=== PATIENT | female | born 1945 | race Caucasian/White ===

== ENCOUNTER 2017-05-04 05:41 | Inpatient (IN) | payer MEDICARE, OTHER ==
[2017-05-04] VITALS (9 sets, daily range): BP systolic 86–140; BP diastolic 42–57; PULSE 60–64; RESP 14–24; O2SAT 93–99
[~2017-05-04] VITALS: Ht 165.1 cm; Wt 96.0 kg
--- NOTE | 2017-05-04 05:35 | ED.REPORT ---
HPI-Chest Pain Under 40 Date of Service May 04, 2017 ED Provider: Layne Mcmahan MD The pt is a 72 y/o female w/ a hx of hyperlipidemia, HTN, diabetes, CAD, and a cerebral infarction presenting to the ED via EMS due to chest pain onset last evening. The pain is rated as a 10/10 and she is also experiencing L jaw pain currently and nausea, vomiting, diarrhea, and black stools for the last few days. Denies peripheral edema, SOB, or abdominal pain. Per EMS, the pts last BP was 101/60 and 324 mg of Aspirin was given en route. The pt was brought to the [facility] and was then sent here by the doctor after they saw the EKG. The pt also experiences generalized pain which is chronic and normal for her. She reports living with her friend at home. She had a cath in 2004 which showed mild disease w/o obstruction and did not have any intervention otherwise. Nursing Notes Stated Complaint: CHEST PAIN Chief Complaint: Chest pain Nursing Notes Reviewed: Yes Allergies: Coded Allergies: No Known Allergies (Unverified , 05/04/17) General Time Seen by MD: 06:10 Chief Complaint Chest pain Hx Obtained From: Patient, EMS Arrived By: Ambulance Sudden in Onset?: Yes Onset Occurred: Yesterday Symptom Duration: Since onset Recent Healthcare: No recent hospitalization, Recent doctor visit Past Medical History Past Medical History Hyperlipidemia Cerebral infarction HTN Diabetes CAD Past Surgical History Bilat hip replacement Cath in 2004 which showed mild disease w/o obstruction and did not have any intervention otherwise. Social History Pt reports living at home w/ a friend Other Social History: Good social support Ambulatory Status Independent Review of Systems L jaw pain; Chronic generalized pain; Respiratory: Denies: Shortness of breath Cardiovascular: Reports: Chest pain, Denies: Edema GI: Reports: Diarrhea, Melena, Nausea, Vomiting, Denies: Abdominal pain Complete sys rev & neg: except as marked. Physical Exam Initial Vital Signs Vital Signs (First) Date Time Temp Pulse Resp B/P Pulse Ox O2 Delivery O2 Flow Rate FiO2 05/04/17 05:47 36.1 64 14 86/42 98 Room Air 05/04/17 07:09 2 Initial VS: Reviewed General/Constitutional: Awake, Alert Alertness: Positive: Confused (Moderately ) Appearance / Presentation: Positive: Pale Respiratory / Chest: No respiratory distress Crackles over R base Cardiovascular: Heart rate NL, Regular rhythm, Heart sounds NL, No murmurs Good inguinal pulses bilaterally Well perfused peripherally Palpable dorsalis pedis and posterior tibialis pulses Neck: Atraumatic, Supple, Full range of motion Abdomen: Atraumatic, Soft, Non-tender Skin: No rash, Intact Neurologic: No motor deficits, No sensory deficits Mental Status: Positive: Confused Neuro is nonfocal Pt is moving all extremities Head / Eyes: Atraumatic, Normocephalic ENT: Airway patent Mouth: Positive: Mucous membranes dry Rectal for Blood: Positive: Maroon stool Guaiac positive Interpretation & Diagnostics H+H on 05/27/14 Hemoglobin - 11.7 Hematocrit - 35.7 Lab Results Interpretation Result Diagram: 05/04/17 0550 05/04/17 0550 Test 05/04/17 05:50 05/04/17 06:05 White Blood Count 14.6th/mm3 (3.8-10.1) Red Blood Count 1.97mil/mm3 (3.90-5.20) Hemoglobin 6.0g/dL (12.0-15.6) Hematocrit 18.3% (35.0-46.0) Mean Corpuscular Volume 92.9fL (81-100) Mean Corpuscular Hemoglobin 30.5pg (27.0-35.0) Mean Corpuscular Hemoglobin Concent 32.8% (32.0-37.0) Red Cell Distribution Width 15.5% (12.3-15.4) Platelet Count 436bil/L (150-400) Neutrophils (%) (Auto) 69.9% (40-74) Lymphocytes (%) (Auto) 19.4% (14-46) Monocytes (%) (Auto) 7.6% (4-12) Eosinophils (%) (Auto) 1.4% (0-5) Basophils (%) (Auto) 0.1% (0-3) Sodium Level 131mEq/L (134-144) Potassium Level 4.7mEq/L (3.5-5.2) Chloride Level 98mEq/L (97-108) Carbon Dioxide Level 16mmol/L (18-29) Blood Urea Nitrogen 63mg/dL (8-27) Creatinine 2.24mg/dL (0.57-1.00) Estimat Glomerular Filtration Rate 31mL/min (>59) Glucose Level 262mg/dL (60-99) Calcium Level 7.9mg/dL (8.5-10.1) Magnesium Level 1.9mg/dL (1.6-2.6) Total Bilirubin 0.2mg/dL (0.0-1.2) Aspartate Amino Transf (AST/SGOT) 29U/L (0-50) Alanine Aminotransferase (ALT/SGPT) 19U/L (0-32) Alkaline Phosphatase 81U/L (25-165) Troponin T 0.010ug/L (0.0-0.011) Total Protein 5.7g/dL (6.4-8.4) Albumin 3.0g/dL (3.4-5.0) Hold Garcia Top Tube Received (Received) Prothrombin Time 11.0sec (8.1-12.5) Prothromb Time International Ratio 1.03ratio ECG Interpretation ECG Interpretation: NSR ST elevation in leads II, III, and aVF Meets sgarbossa criteria LBBB Time: 06:15 Interpreted by: ED physician X-Ray Chest Interpretation Chest Xray Interpretation: IMPRESSION: No acute cardiopulmonary disease process. Dictated by: Arlyn Malone MD, PhD on 05/04/2017 at 8:43 Approved by: Arlyn Malone MD, PhD on 05/04/2017 at 8:43 View: Portable, 1 view Interpretation / Wet Read by: Interpret - Radiologist Re-Eval/Medical Decision Re-Evaluation/Progress #1: Time of Eval: 06:20 Re-Evaluation/Progress Note: Pt rechecked. Dr. Shaver, sheet tester, was with the pt. STEMI was activated en route but deactivated due to other medical issues. Re-Evaluation/Progress #2: Time of Eval: 06:45 Re-Evaluation/Progress Note: Pt rechecked who reports their pain continuing. Discussed plan to administer nitro. Re-Evaluation/Progress #3: Time of Eval: 08:30 Re-Evaluation/Progress Note: Pt rechecked. Informed pt of need for admission. Pt understands and agrees with plan for admission. All questions addressed. Consultation #1: Referral / Consult Name: Endy Shaver MD Consulted With: Cardiology Call Returned at: 05:33 Afterschool: Will see patient Consultation #2: Referral / Consult Name: Connor Amos MD Consulted With: Hospitalist Call Returned at: 07:55 Afterschool: Will see patient, Agrees with eval, Agrees with plan, Accepts admit Counseled Regarding: Diagnosis, Lab results, Need for admission Discharge & Departure Primary Impression: Acute blood loss anemia Additional Impressions: GI bleed GI bleed type/associated pathology: unspecified gastrointestinal hemorrhage type Qualified Code: K92.2 - Gastrointestinal hemorrhage, unspecified Chest pain Chest pain type: unspecified Qualified Code: R07.9 - Chest pain, unspecified Altered mental state Altered mental status type: unspecified Qualified Code: R41.82 - Altered mental status, unspecified Disposition: ADMITTED TO HOSPITAL Discharge Condition All VS Reviewed: Yes Condition: Stable Referrals: Sandra Canas PA-C (PCP) Scribe Attestation Portions of this note were transcribed by Sherwin Tripp. I, Dr. Mcmahan personally performed the history, physical exam and medical decision-making; I reviewed and confirmed the accuracy of the information in the transcribed note. copies to: Sandra Canas PA-C, Howard L MD May 04, 2017 05:34 Sherwin Tripp May 04, 2017 06:29
[2017-05-04 06:04] LABS: BASOPHILS % (AUTO) 0.1 % (0-3); EOSINOPHILS % (AUTO) 1.4 % (0-5); MONOCYTES % (AUTO) 7.6 % (4-12); Mean Corpuscular Hemoglobin 30.5 pg (27.0-35.0); Mean Corpuscular Volume 92.9 fL (81-100); NEUTROPHILS % (AUTO) 69.9 % (40-74); Platelet Count 436 bil/L (150-400)
[2017-05-04] MEDS ORDERED: 0.9% Sodium Chloride 500 ML ONE (06:06)
[2017-05-04] MEDS ORDERED: Ketamine 10 mg/mL 20 mL Inj ONE (06:12)
[2017-05-04] MEDS ORDERED: Propofol 10,000 mCg/mL 20 mL Inj ONE (06:12)
[2017-05-04 06:19] LABS: INR 1.03 ratio
[2017-05-04] MEDS ORDERED: Phenylephrine/NS-PF 100 mCg/mL 5 mL Syringe IVPUSH ONE (06:20)
[2017-05-04] MEDS ORDERED: Heparin 1,000 Units/500 mL NS Premix IV ONE (06:20)
[2017-05-04] MEDS ORDERED: 0.9% Sodium Chloride 1,000 ML ONE (06:20)
[2017-05-04] MEDS ORDERED: Nitroglycerin 50,000 mcg/250 mL D5W Premix IV ONE (06:20)
[2017-05-04] MEDS ORDERED: Atropine 1 mg/10 mL (Code) Syringe ONE (06:20)
[2017-05-04] MEDS ORDERED: EPINEPHrine 0.1 mg/mL 10 mL Syringe ONE (06:20)
[2017-05-04] MEDS ORDERED: Heparin 1,000 Unit/mL 10 mL Inj ONE (06:20)
[2017-05-04 06:25] LABS: TROPONIN T 0.01 ug/L (0.0-0.011)
[2017-05-04] MEDS ORDERED: Pantoprazole 4 mg/mL 10 mL Inj IVPUSH ONE (06:25)
[2017-05-04] MEDS ORDERED: Pantoprazole Inj 80 MG, Pharmacy To Mix 1 EA in 0.9% Sodium Chloride 80 ML IV ONE ×2 (06:25)
[2017-05-04 06:36] LABS: Magnesium 1.9 mg/dL (1.6-2.6)
[2017-05-04] MEDS ORDERED: LidocaineVisc 2%:Antacid 1:1 10 mL Syringe PO STA (07:17)
--- NOTE | 2017-05-04 08:22 | CONS ---
[address] [address] CONSULTATION REPORT PATIENT: YELENA MARTINS : [birth year] MR#: [id number] ADMIT: 05/04/2017 JOB ID: [id number] CARDIOLOGY CONSULTATION NOTE--INITIAL CRITICAL CARE EVALUATION (EMERGENCY DEPARTMENT): DATE OF EVALUATION: Thursday, May 04, 2017 at 5:45AM. CONSULTING PHYSICIAN: Cardiology--Endy Shaver MD PROBLEMS: 1. Acute Coronary Syndrome (ACS): a. Chest Pain--Severe retrosternal chest pain radiating to the back for already for several hours. b. Abnormal ECG--left bundle branch block with inferior ST-elevation; and prior known left bundle branch block without ST elevation. 2. Anemia and hypotension: a. Hemoglobin 6. b. Initial ysytolic blood pressure 78. c. Recent orthostatic hypotension. d. Melena for several days and now guaiac-positive stool. 3. History of atrial fibrillation. a. History of Coumadin therapy. b. Elevated CHADS score (age; gender; hypertension; diabetes; possible history of stroke). CHIEF COMPLAINT: Called for "Online Marketing Manager Activation" for Chest pain and left bundle branch block. HISTORY OF PRESENT ILLNESS: I came emergently to see this 72-year-old woman who arrived to the Emergency Department by ambulance transport from home. She is somewhat confused and not fully oriented, and unable to give a complete accurate history. She has not had recent chest pain until the onset of chest discomfort. Yesterday evening she apparently had discomfort on and off all the evening and had to "walk around all night." She was said to have a fall leading to calling for EMS help; but I am unable to get further details of that; but no obvious history of trauma. She reports severe left parasternal chest discomfort that is "sharp" and radiates to the back. She is not short of breath. There is no nausea, vomiting or diaphoresis. She also describes bilateral lower abdominal discomfort that is severe, but not cramping. There has been no diarrhea. In the field, she received aspirin. HOSPITAL COURSE: On arriving to the emergency department, ECG showed left bundle block with inferior ST elevation; and catheterization lab was activated. However it became clear early on that she had a hemoglobin of 6, hostory of recent melena and guaiac-positive stool, and the decision was made not to proceed emergently to catheterization laboratory. CARDIAC HISTORY: Prior records are largely not available currently. She was hospitalized in 2004 for chest pain and had cardiac catheterization that showed only coronary plaquing. She had poorly controlled hypertension then. A myocardial perfusion scan showed no ischemia in 2007. She has apparently not had active cardiac issues since then. She tells me she does not generally have shortness of breath or other signs of congestive heart failure, including nocturnal dyspnea or edema. History of atrial fibrillation is not well documented. She has no other current arrhythmic symptoms including tachy palpitation, presyncope or syncope. She does however have orthostatic hypotension for the past several days including "falls." Regarding bleeding, she notes recent change in her bowel movements that are "really changed: black, tarry and foul smelling. No red blood. No other bleeding symptoms. Regarding dual antiplatelet therapy, she has no anticipated upcoming surgery. Regarding other possible underlying vascular disease, the record indicates a possible history of a stroke, but no details. She was recently seen for chronic severe migrainous headache. She has no current symptoms of TIA. No claudication. ALLERGIES: The record indicates no known allergies. I elicit no history of allergy to medical contrast or to seafood, fish, iodine, shellfish or seafood. MEDICATIONS: Accurate list of medications not currently available. A recent outpatient summary indicates: 1. Albuterol inhaler. 2. Insulin pen. 3. Bupropion 150 mg three q.a.m. 4. Citalopram 20 mg daily. 5. Donepezil 5 mg daily. 6. Keppra 750 mg b.i.d. 7. Lantus. 8. Levothyroxine 88 mcg daily. 9. Lovastatin 20 mg daily. 10. Metoprolol ER 50 mg daily. 11. Qvar topiramate 25. 12. Coumadin 5 mg daily. PAST MEDICAL HISTORY: CAD risk factors: 1. Chronic hypertension. 2. History of diabetes. 3. History of hyperlipidemia. 4. She denies family history of premature coronary disease. 5. Nonsmoker. REVIEW OF SYSTEMS: I questioned her in the emergent setting about a 13 point review of systems, which was unremarkable, noncontributory, and negative, except as noted above and is limited by her inability to answer, includin. She denies thyroid disease. 2. She denies lung disease including asthma or wheezing. 3. She denies GI disease including indigestion, hepatitis, jaundice, ulcers. PERSONAL AND SOCIAL HISTORY: Alcohol--unable to answer. Family--She lives with a friend and has two grown children locally, but no other family currently present. FAMILY HISTORY: Not further contributory. PHYSICAL EXAMINATION: General appearance: Elderly, well-developed alert woman who appears pale, uncomfortable and she is not oriented to her age, or time. Vital Signs: Blood pressure initially 78 systolic, now 86/42 with a heart rate regular 64 in sinus rhythm on telemetry. Respiratory rate 14 and unlabored with SpO2 of 98% on room air. Afebrile 36.1. Weight 220 pounds. Weight reported 225 pounds. Neurologic and mental status: No overt focal neurologic defect noted. She is alert, not fully oriented, but otherwise appropriate, and able to answer questions. HEENT: PERRL. Conjunctivae pale. Sclerae not icteric. Mouth and mucous membranes intact. Neck: Carotid upstroke brisk and full bilaterally without bruit. Jugular venous pressure unremarkable examined supine. No palpable thyromegaly. No palpable cervical lymphadenopathy. Lungs: Clear to auscultation bilaterally. Cardiac: No CWT. Heart Exam otherwise notable for distant heart sounds; regular rhythm; and there is no loud murmur. Abdomen: Obese and in there is moderately severe tenderness in the bilateral lower abdomen without rebound. Otherwise, no mass, hepatosplenomegaly or bruit of abdominal aortic aneurysm. Extremities: No edema. Pedal pulses difficult to feel bilaterally, but the bilateral femoral arterial pulses intact without bruit. DIAGNOSTIC STUDIES: ELECTROCARDIOGRAM: The pre-hospital ECG and the admitting ECG shows sinus rhythm at 64 BPM with left bundle branch block; however, there is mild ST straightening and ST-elevation inferiorly that fransisco suggestive of MO by Sgarbossa criteria. This is changed from a prior ECG without ST-elevation. CHEST X-RAY: The x-ray film shows cardiomegaly and pulmonary venous hypertension consistent with pulmonary edema. The mediastinum does not appear wide. LABORATORY: CBC includes WBC 14,600 with hemoglobin 6.0, hematocrit 18.3, normal indices, and platelet count 436,000. INR 1.03. Chemistries include potassium 4.7, BUN 63, creatinine 2.24, estimated GFR 31 with glucose 262, magnesium 1.9 and unremarkable LFT. Initial troponin not elevated, less than 0.010. ASSESSMENT: I discussed the findings, impressions and management considerations with the patient (no family present), with the ED staff ( and Dr. Mcmahan) includin. Acute coronary syndrome and severe anemia: She presents critically ill, with a complex clinical scenario. Initially she presented with chest pain and the ECG suggests ST-elevation myocardial infarction despite underlying left bundle branch block. She is also hypotensive which may be multifactorial. It quickly became clear that she had life threatening anemia in the setting of melena and this is likely acute anemia without hypochromic microcytic indices. Initially the catheterization laboratory was activated with consideration of emergent coronary angiogram. Cath laboratory activation was deferred in as much as anemia and apparent gastrointestinal bleeding contraindicates anticoagulation that would be necessary for acute and chronic management of coronary disease. Additionally, it is likely that her apparent infarction and acute coronary syndrome may be related to, or exacerbated by, "type 2 myocardial infarction" from supply demand mismatch from her severe anemia rather than from plaque rupture; and optimal treatment may be first directed at the hemmorhage. RECOMMENDATIONS: 1. Admit to Hospitalist to CCU for critical care support. 2. Transfusion. 3. Please reconsult for ongoing Cardiology follow-up. 4. OMT--consider guideline directed optimal medical therapy for her underlying CAD risk factors; and for her apparent underlying CAD; but anticoagulation appears contraindicated at present. 5. Your plan to evaluate abdominal pain, melena, anemia and apparent GI bleeding; including emergent GI consultation and consideration of early Endoscopy. 6. Please obtain prior records when available and reconsult, at which point we will be glad to review. 7. Severe renal insufficiency identified as well. 8. Echocardiogram now. MTDD
[2017-05-04] MEDS ORDERED: Alum-Mag Hydrox-Simeth 30 mL Suspension PO PRN ×2 (08:35→12:20)
[2017-05-04] MEDS ORDERED: Ondansetron 2 mg/mL 2 mL Inj IVPUSH PRN ×2 (08:35→12:20)
--- NOTE | 2017-05-04 08:45 | DRSVH ---
PROCEDURE: X-RAY CHEST ONE VIEW, PORTABLE ([id number]) INDICATIONS: chest pain TECHNIQUE: One view of the chest was acquired. COMPARISON: [facility], , CHEST 1 VIEW, 07/25/2016, 12:40. FINDINGS: Surgical changes and devices: None. Lungs and pleura: No pleural effusions or pneumothorax. Lungs are clear. Mediastinum: Mediastinal contours appear normal. Heart size is normal. Bones and chest wall: No suspicious bony lesions. Overlying soft tissues appear unremarkable. IMPRESSION: No acute cardiopulmonary disease process. Dictated by: Arlyn Malone MD, PhD on 05/04/2017 at 8:43 Approved by: Arlyn Malone MD, PhD on 05/04/2017 at 8:43
[2017-05-04] MEDS: 0.9% Sodium Chloride 1,000 ML IV SCH ×2 (10:04→12:34)
--- NOTE | 2017-05-04 12:14 | PCM.HPMED ---
Subjective Date of Service May 04, 2017 Primary Provider: Admitting Physician: Endy Shaver MD Primary Care Physician: Sandra Canas PA-C Attending Physician: Endy Shaver MD Chief Complaint: Chest pain History of Present Illness: 72 -year-old female with history of dementia, hyperlipidemia, HTN, diabetes, CAD , and CVA presents to the ED via EMS due to chest pain onset last evening. Patient described the pain as a 10/10 which radiates to the L jaw. Associated symptoms include nausea, vomiting, diarrhea, and black stools for the last few months and generalized pain which appears to be baseline chronic. Denies peripheral edema, SOB, or abdominal pain. Patient is a poor historian and not currently oriented to place or time, it is hard to tell whether this is a new development or if this is her baseline dementia. A family member/friend has been notified and is in route to see the patient. Med rec pending until additional records can be obtained. She had a cath in 2004 which showed mild disease without obstruction and did not have any intervention otherwise. Blood pressure in route to the hospital 101/60 with 324 mg of Aspirin was given en route. The pt was initially brought to the parking [facility] and was then sent to [facility] by the doctor after noting ST elevations on EKG. On arrival to [facility] EKG was obtained which showed normal sinus rhythm with ST elevations in leads II, III, and aVF but also showed a left bundle-branch block. Labs were taken and the patient was found to have a hemoglobin of 6.0. This patient was subsequently transfused with 4 units of blood. Blood pressures were decreased on arrival at 86/42, post transfusion of platelets the patient's blood pressure continued to increase and is currently 118/53. Pulse borderline low, respirations normal, patient initially requiring 2 L but has since been saturating well on room air. Other significant lab findings are as follows WBC 14.6, platelets 436, sodium 131, chloride 98, bicarbonate 16, BUN 63, creatinine 2.24, glucose 262. Dr. Shaver was initially consulted in this case and after looking at the EKG concluded that the patient meets sgarbossa criteria for a likely inferior infarct, however in light of her obvious bleeding in conjunction with her increased creatinine it would be unwise to initiate any interventions at this time especially catheterization and/or heparinization. After the patient is considerably more stable and EKG can be reobtained and diagnosis of coronary ischemia is more likely to be clear-cut at that point. Dr. Toth also saw the patient and based on a rectal exam believes that her bleeding is likely upper GI as opposed to lower, and will take the patient for an upper scope today, and continue with lower scope if no significant findings are appreciated. Review of Systems: ROS negative except as listed in history of present illness Allergies Coded Allergies: No Known Allergies (Unverified , 05/04/17) Home Medications Unknown, records from PCP pending PMH Hyperlipidemia Cerebral infarction HTN Diabetes CAD Surgical History Bilat hip replacement Cath in 2004 which showed mild disease w/o obstruction and did not have any intervention otherwise. Social History Hx Alcohol Use: No Hx Substance Use: No Hx Tobacco Use: No Exam Vital Signs Vital Sign - Last Date Time Temp Pulse Resp B/P Pulse Ox O2 Delivery O2 Flow Rate FiO2 05/04/17 09:20 36.8 64 18 118/53 95 Room Air 05/04/17 08:53 2 Exam General: No acute distress, well-developed, well-nourished Head: Normocephalic, atraumatic. External ears without defect. Eyes: Pupils equal, round, and reactive to light and accommodation. Anicteric sclerae, moist conjunctivae. Neck: Normal range of motion, no lymphadenopathy noted Cardiovascular: Regular rate and rhythm with no murmurs, rubs, or gallops appreciated Pulmonary: Clear to auscultation bilaterally with no crackles, wheezes, or rhonchi. Normal respiratory effort with no use of accessory muscles. Abdomen: Bowel tones present. Soft, nontender, nondistended. Extremities: No clubbing, cyanosis, edema Skin: Normal temperature, turgor, and texture; no rash, ulcers, or subcutaneous nodules appreciated. Neurological: Cranial nerves grossly intact. Reflexes, coordination, and sensory function within normal limits. Normal muscle strength, tone, and bulk. Psychiatric: Normal mood and affect. Obvious dementia, Oriented to person but not place or time Rectal: No lesions or jane blood in the anus, well-formed stool in the vault, stool appears dark Lab and Diagnostics Result Diagram: 05/04/17 0550 05/04/17 0550 X-Rays, CTs and MRIs X-RAY CHEST ONE VIEW, PORTABLE IMPRESSION: No acute cardiopulmonary disease process. Dictated by: Arlyn Malone MD, PhD on 05/04/2017 at 8:43 Approved by: Arlyn Malone MD, PhD on 05/04/2017 at 8:43 Cardiac Echo Impressions Echocardiogram Interpretation Summary Left ventricular systolic function is mildly reduced with the ejection fraction visually estimated to be 45-50% with borderline global hypokinesis that is worse in the inferior and posterior segments which are severely hypokinentc, which is new compared to the previous study. Compared to the prior exam, left ventricular function has slightly decreased. There is mild concentric left ventricular hypertrophy with diastolic parameters suggesting a pseudonormalization pattern, consistent with elevated filling pressures, but likely unchanged compared to the previous study. The right ventricle is normal in size and function, and appears unchanged compared to the previous study. The right ventricular systolic pressure is estimated at least 54 mmHg assuming a right atrial pressure of 8 mm Hg, and is likely slightly higher compared to the previous study. The left atrium is severely dilated and has mildly increased in size since the prior echo exam. Right atrial size is normal and has significantly decreased in size since the prior echo exam. There is mild mitral regurgitation and mild to moderate tricuspid regurgitation that are unchanged compared to the previous study. There is no other significant valvular heart disease. The ascending aorta is at the upper limits of normal in size. The patient was in normal sinus rhythm with a probable bundle branch block rhythm with heart rates between 60-65 bpm during the study which is considerably faster compared to the previous study. Reading Physician:12:42 PM Assessment & Plan 72 -year-old female with history of dementia, hyperlipidemia, HTN, diabetes, CAD , and CVA presents to the ED via EMS due to chest pain onset last evening. Of note: Patient's PCP is Dr. Andres Corona in [place], records have been petitioned but not obtained at this time. Up-to-date med list has not been obtained, patient and partner are both poor historians in this matter. The partner only recalls the amlodipine and donepezil were recently discontinued. Normocytic anemia secondary to GI bleed, present on arrival, active Rectal exam showing stool in the vault, nonbloody. Less likely lower GI bleed Upper scope completed by Dr. Toth on 05/04 shows multiple duodenal ulcers, with no active bleeding - Patient transfused 4 units PRBCs - Post transfusion H&H 11.0 - Trend H&H overnight, repeat transfusion if less than 8.0 - Continue to monitor closely Acute hypotension, present on arrival, stable Blood pressure on arrival 86/42 Patient was given 2 L of fluid in the ED as well as 4 units PRBCs -Vitals have been stable since that time - Continue to monitor Q4 Acute hypoxic respiratory distress, present on arrival, stable - Patient is not on oxygen at home - Currently Requiring 2 L nasal cannula - Acute wheezing noted, however DuoNeb scheduled only for increasing oxygen needs due to recent CO Normocytic anemia secondary to GI bleed, present on arrival, active Rectal exam showing stool in the vault, nonbloody. Less likely lower GI bleed Upper scope completed by Dr. Toth on 05/04 shows multiple duodenal ulcers, with no active bleeding - Patient transfused 4 units PRBCs - Post transfusion H&H 11.0 - Trend H&H overnight, repeat transfusion if less than 8.0 ST elevation CO, present on arrival, active Likely due to hypoperfusion secondary to anemia, possibly in combination with coronary defect. EKG meets sgarbossa criteria for inferior infarct - Echo ejection fraction 45-50% other results as above - Cardiology consulted, catheter not suggested due to acute bleed in conjunction with ANGY Acute kidney injury, present on arrival, active Likely due to hypoperfusion secondary to anemia - Patient received 2 L normal saline in ED - No known history of kidney disease Acute leukocytosis, present on arrival, active Likely due to stress reaction secondary to ischemic injury Dementia, present on arrival, active Partner reports that this is gradually worsening Patient sees Dr. Saucedo from neurology - The only labs in [facility] are from 2013 History of Type II diabetes - Glucose on arrival to 280s - Started on medium dose correction - Transition to long-acting as appropriate History of Hypertension - Hold all antihypertensive medications at this time Coronary artery disease Per patient catheter in 2004 with no interventions at that time - Patient presents a poor historian, records needed to further elucidate past interventions. Disposition: Patient admitted under inpatient status with expected length of stay > 2 midnights for severity of present symptoms, complexities of treatment plan and risk for adverse event GI Prophylaxis: H2 ingrid (famotidine every 12) VTE Prophylaxis Indicated: CCU Admission, Contraindicated VTE Prophylaxis: Other (contraindicated due to GI bleed) Resuscitation Status: CPR: Attempt Resuscitation Attending Statement The patient was seen and examined together with Dr. Amor on 05/04/2017 and I agree with the history, exam and plan as outlined in the note above. . copies to: Sandra Canas PA-C, Adam J DO May 04, 2017 12:14 Connor Amos MD May 05, 2017 07:58
[2017-05-04] MEDS ORDERED: Polyethylene Glycol (PEG) 17 Gm Powder PO PRN (12:20)
--- NOTE | 2017-05-04 12:43 | DRSVH ---
[facility] [address] [place] [address] Echocardiogram Report Name: YELENA MARTINS Date: 05/04/2017 Height: 65 in Hospital Exam Location: [facility] Weight: 202 lb Gender: Female BSA: 2.0 m2 : 1945 Age: 72 yrs BP: 118/ 53 mmHg Reason For Study: POSSIBLE STEMI Ordering Physician: HOSPITALIST [facility] Performed By: Freida Iqbal Referring Physician: Cookie Salguero Interpretation Summary Left ventricular systolic function is mildly reduced with the ejection fraction visually estimated to be 45-50% with borderline global hypokinesis that is worse in the inferior and posterior segments which are severely hypokinentc, which is new compared to the previous study. Compared to the prior exam, left ventricular function has slightly decreased. There is mild concentric left ventricular hypertrophy with diastolic parameters suggesting a pseudonormalization pattern, consistent with elevated filling pressures, but likely unchanged compared to the previous study. The right ventricle is normal in size and function, and appears unchanged compared to the previous study. The right ventricular systolic pressure is estimated at least 54 mmHg assuming a right atrial pressure of 8 mm Hg, and is likely slightly higher compared to the previous study. The left atrium is severely dilated and has mildly increased in size since the prior echo exam. Right atrial size is normal and has significantly decreased in size since the prior echo exam. There is mild mitral regurgitation and mild to moderate tricuspid regurgitation that are unchanged compared to the previous study. There is no other significant valvular heart disease. The ascending aorta is at the upper limits of normal in size. The patient was in normal sinus rhythm with a probable bundle branch block rhythm with heart rates between 60-65 bpm during the study which is considerably faster compared to the previous study. Procedure: A two-dimensional transthoracic echocardiogram with color flow and Doppler was performed. The study quality was technically adequate. Comparison is made with the echocardiogram of 12/16/15. The patient was in normal sinus rhythm during the exam. The patient had a bundle branch block rhythm during the exam. The heart rate ranged between 60-65 bpm during the study. This is considerably faster compared to the previous study. Left Ventricle: The left ventricle is normal in size. There is mild concentric left ventricular hypertrophy. Left ventricular systolic function is mildly reduced. The ejection fraction is estimated to be 45-50%. Compared to the prior exam, left ventricular function is slightly decreased. There is borderline global hypokinesis of the left ventricle. This is worse in the inferior and posterior segments whichar are severely hypokinentc, which is new compared to the previous study. Assessment of diastolic parameters suggests a pseudonormalization pattern, consistent with elevated filling pressures. This is unchanged compared to the previous study. Right Ventricle: The right ventricle is normal in size and function. This is unchanged compared to the previous study. Atria: The left atrium is severely dilated. The left atrium has mildly increased in size since the prior echo exam. Right atrial size is normal. The right atrium has significantly decreased in size since the prior echo exam. There is no Doppler evidence for an interatrial shunt. Mitral Valve: There is mild mitral annular calcification. The mitral valve leaflets appear mildly thickened, but open well. There is mild mitral regurgitation. This is unchanged compared to the previous study. Aortic Valve: The aortic valve is trileaflet. The aortic valve is slightly calcified. The aortic valve opens well. No aortic regurgitation is present. Tricuspid Valve: The tricuspid valve is normal. There is mild to moderate tricuspid regurgitation. This is unchanged compared to the previous study. The right ventricular systolic pressure is estimated at least 54 mmHg assuming a right atrial pressure of 8 mm Hg. This is likely slightly higher compared to the previous study. Pulmonic Valve: The pulmonic valve is not well visualized. There is trace pulmonic regurgitation. There is no other significant valvular heart disease. Great Vessels: The aortic root is normal size. The ascending aorta is at the upper limits of normal in size. The aortic arch could not be visualized. The pulmonary is not well visualized. The IVC is dilated (diameter is greater than 2.1 cm) yet it collapses greater than 50% with a sniff. This suggests a right atrial pressure of 8 mm Hg. Pericardium/ Pleura There is no pericardial effusion. There is no pleural effusion. MMode/2D Measurements & Calculations LVIDd: 4.8 cm LVIDs: 3.4 cm LA A2 area: 31.1 cm FS: 28.9 % LA A4 area: 26.3 cm EPSS: 0.50 cm LA length (vol): 6.3 cm IVSd: 1.1 cm LA vol: 110.4 ml LVPWd: 1.1 cm LA vol index: 55.6 ml/m IVC diam: 2.4 cm RA long axis: 4.7 cm LVOT diam: 1.7 cm RA area: 14.6 cm AoV Openin.8 cm RA vol: 38.5 ml Ao root diam: 3.3 cm RA : 19.4 ml/m2 asc Aorta Diam: 3.3 cm LV sharif. diameter/BSA (cm/m^2): 2.4 LV sys. diameter/BSA (cm/m^2): 1.7 RVD1 (basal): 4.4 cm RVD2 (mid): 2.9 cm Doppler Measurements & Calculations Ao V2 max: 141.3 cm/sec MV E max jhony: 133.6 cm/sec Ao max P.0 mmHg MV A max jhony: 102.2 cm/sec Ao mean P.1 mmHg MV P1/2t: 60.8 msec LVOT Max Jhony: 127.5 cm/sec MVA(VTI): 1.2 cm2 MERCY(I,D): 1.8 cm sev ratio: 0.75 MV E/A: 1.3 TR max jhony: 338.4 cm/sec Med Peak E' Jhony: 5.9 cm/sec TR max P.8 mmHg E/E' med: 22.7 PA V2 max: 99.2 cm/sec Lat Peak E' Jhony: 7.9 cm/sec PA mean P.1 mmHg E/E' lat: 16.9 E/e' average: 19.8 MV V2 mean: 76.0 cm/sec MV P1/2t max jhony: 133.6 cm/sec MV mean P.8 mmHg MV V2 VTI: 46.9 cm MVA(P1/2t): 3.6 cm2 MV dec time: 0.21 sec Ao V2 mean: 97.3 cm/sec LV V1 max P.5 mmHg Ao V2 VTI: 32.5 cm LV V1 VTI: 24.2 cm MERCY(V,D): 2.1 cm2 PA V2 mean: 69.0 cm/sec MERCY indexed to BSA (cm^2/m^2): 0.89 PA pr(Accel): 53.3 mmHg Reading Physician:12:42 PM
--- NOTE | 2017-05-04 13:44 | NUR ---
NUTRITION ASSESSMENT: ASSESS: 72 YO female presents to the ED via EMS due to chest pain onset last evening. Patient described the pain as a 10/10 which radiates to the L jaw. Associated symptoms include nausea, vomiting, diarrhea, and black stools (likely upper GI bleed) for the last few days and generalized pain which appears to be baseline chronic. She will likely be NPO for a day or so related to cardiology and gastroenterology involvement. Code status: full. PMHx: Hyperlipidemia, cerebral infarction, HTN, diabetes, CAD. DIET: NPO. LABS: Na 131, CO2 16, BUN 63, Cr 2.24, Glu 262, Ca 7.9, Alb 3.0. MEDICATIONS: Reviewed. NUTRITION FOCUSED PHYSICAL ASSESSMENT: GI symptoms / stool: No stool reported. Roberto Carlos: No Roberto Carlos score. Skin Integrity: No issues identified. ANTHROPOMETRICS: Current Wt: 96 kg. BMI: 35.0 kg/m2. IBW: 47.8 kg (200.8% IBW) ESTIMATED NEEDS (CLASS II OBESITY): Calories: 1052 - 1195 kcal (22 - 25 kcal / kg IBW) Protein: 86 - 96 g protein (1.8 - 1.0 g / kg IBW) NUTRITION DIAGNOSIS: 1)Inadequate oral intake related to altered GI / cardiac function, as evidenced by NPO status. INTERVENTION: 1) No intervention at this time. MONITOR/EVALUATE: NPO status, labs, weight, nutritional status. Follow up per moderate nutrition risk guidelines.
--- NOTE | 2017-05-04 13:50 | NUR ---
Admit Very poor history taken at admit due to confusion. No recall history available at the time of admit.
[2017-05-04] MEDS ORDERED: Glucose 40% Oral Gel 15 Gm Tube PO PRN (14:00)
--- NOTE | 2017-05-04 14:04 | CONS ---
[address] [address] CONSULTATION REPORT PATIENT: YELENA MARTINS : 1945 MR#: [id number] ADMIT: 05/04/2017 JOB ID: [id number] DATE OF SERVICE: 05/04/2017 REASON FOR CONSULTATION: It was pleasure seeing the patient at [facility] for evaluation of anemia and melena. HISTORY OF PRESENT ILLNESS: This is a 72-year-old lady with quite a bit of medical history including CAD, hypothyroidism, high blood pressure, diabetes, and on Coumadin, who came in with confusion and chest pain. They noted that the patient had sharp chest pain in the precordial area with left bundle branch block. She has a left bundle branch with inferior ST elevation and prior known left bundle-branch block without ST-segment elevation. She is confused and disoriented, therefore she is not able to give me much history. However, looking at the Cardiology note, he indicated that the patient had melena. Hemoglobin on admission was noted to be 6.0. However, she was hemodynamically stable. Cardiology note indicated that she was having chest pain, sharp, radiating to the back. Was not short of breath. Was not nauseated. She also described lower abdominal discomfort as well, but she could not describe that very well for the chief design branch or myself. It was elected that she not proceed with emergent catheterization based on these findings. Overnight, she was admitted to CCU and she was given 4 units of blood, and recommended medical therapy. Overnight, she did not have any bowel movement and she was given about 1.8 L of normal saline and 4 units of blood given. REVIEW OF SYSTEMS: I could not obtain review of systems. PAST MEDICAL HISTORY: As above. High cholesterol, cerebellar infarction, hypertension, diabetes, CAD, AFIB on Coumadin. PAST SURGICAL HISTORY: Bilateral hip replacement. Cath in 2004 showing mild disease without obstruction. SOCIAL HISTORY: Lives at home. No tobacco or alcohol. FAMILY HISTORY: Unobtainable. PHYSICAL EXAMINATION: Vitals: Temp 36.8, pulse 64, respiration 18, blood pressure 118/53. Head and neck: No icterus. Lungs: Clear. Cardiovascular: Irregular, with normal S1, S2. Abdomen: Soft. Nontender, nondistended. Normoactive bowel sounds. Extremities: No pitting edema of the ankles. Skin: Shows no obvious jaundice. Rectal exam was done in the presence of a female nurse. It appeared that she had darker brown stools but no blood or melenic appearance noted. The stool did not smell like melena. LABORATORY DATA: INR 1.03. Chemistry showing BUN of 63, creatinine 2.24. Otherwise LFTs are normal. Albumin 3.0. Hemoglobin 6.0, white count 14,600, platelets are 436,000. IMPRESSION: A 72-year-old lady with chest pain, EKG changes. Because of the possible bleeding, catheterization was not done. Again, EKG changes noted. Troponins were negative fortunately and she is hemodynamically stable. Rectal exam revealed no blood or melena. Overall this is, in my opinion, almost likely slow bleeding from something. Despite being on Coumadin, her INR is normal. I do not believe this is an active gastrointestinal bleeding, however we will proceed with an upper endoscopy to find a potential source. RECOMMENDATION: Esophagogastroduodenoscopy with anesthesia because of the EKG changes. Fortunately troponins are negative, therefore unlikely myocardial infarction, but it does not rule out unstable angina. Agree with IV Protonix. Will make further recommendation after we do the EGD Again, of note, because of EKG changes and possible unstable angina this is going to have increased risk for cardiovascular compromise.
[2017-05-04] MEDS ORDERED: Lactated Ringer's 1,000 ML IV ONE (14:05)
--- NOTE | 2017-05-04 14:08 | PCM.ENDEGD ---
EGD Date of Service: May 04, 2017 Physician Ryan Toth MD Pre Procedure Diagnosis: Anemia Post Procedure Dx & Findings: sophagitis esophageal ulcer gastritis healing gastric ulcer duodenal ulcers Procedure Esophagogastroduodenoscopy PROCEDURE IN DETAIL: Anesthesia done by anesthesiology After proper sedation, Olympus video endoscope was inserted into patient's mouth and esophagus was successfully intubated. Scope introduced esophagus. Esophagus showed normal shiny whitish mucosa consistent with squamous cell component. Z line was at 40 cm from the incisors. Largest one was 2.5 centimeter by 1 cm linear ulcer noted with surrounding inflammation. More proximally, few superficial erosions are noted as well. Also there was whitish material isolated at the GE junction and more proximally along the esophagus possibly due to fungus. Brushing done. Scope further advanced to the stomach. Antrum showed mild inflammation and irritation and there was a half a centimeter area of mild redness consistent with healing ulcer. Cardia fundus body antrum pylorus were all visualized. Retroflexion was done. Stomach was easily inflated and deflatable using air. Scope further events to the distal duodenum. Duodenum revealed multiple ulcers. I counted about 4 large ones. This was about 2-3 cm. There was one ulcer with a pigmented spot. Rest of them were all clean-based. The ulceration continued to the third or fourth part of the duodenum. However these ulcerations were more superficial. Impression Multiple ulcers especially in the duodenum. One with pigmented spot. Gastric healing ulcer Erosive gastropathy with superficial ulcer. Recommendation IV Protonix drip for 48 hours Clear liquid diet for 48 hours Follow up in GI clinic 2 weeks after discharge Because patient had some any ulcers in the duodenum, I would like to redo EGD in about 2 months. Would avoid NSAIDs. Aspirin and Plavix will increase her risk of bleeding however cardiac and stroke prevention be higher priority. Coumadin would also increase her likelihood of bleeding as well. But again cardiac and stroke prevention would be a higher priority. After 48 hours, switch to by mouth Protonix and advanced diet as tolerated. Presedation Assessment Risks and Benefits Informed consent was obtained from the patient after all risks and benefits including but not limited to drug reaction, infection, pain, bleeding, perforation, as well as alternatives were discussed. Patient monitoring Continuous pulse oximetry, cardiac monitoring, blood pressure monitoring, IV access, and oxygen at 2L per nasal cannula. Complications There were no periprocedural complications identified. Post Procedure Plan Post Procedure Recommendations 1. Restrict activities today. 2. Resume normal activities in the morning. 3. Resume medications. 4. GERD behavioral modification: - Avoid fatty, acidic, spicy, large meals - Do not lie down after meals - Do not eat or drink anything for at least 2 1/2 hours before going to bed at night - Discontinue tobacco and alcohol - Decrease or avoid caffeine - Avoid chocolate and mints - Decrease weight - Avoid aspirin and non steroidal anti-inflammatory agents (NSAID) such as Aleve, Advil, Mobic, Naproxen, Ibuprofen, etc 5. Add proton pump inhibitor. Take 30 minutes before 1st meal of the day. 6. Patient informed of normal post procedure side effects as bloating, drowsiness, blood streaking in the stool 7. If gastric biopsy reveal H.pylori, continue with appropriate treatment 8. If small bowel biopsy reveals celiac, continue with appropriate treatment 9. Please don't hesitate to call me with any questions Ryan Toth MD May 04, 2017 14:08
[2017-05-04] MEDS ORDERED: Dextrose 10% 250 ML IV PRN (14:10)
[2017-05-04 14:11] LABS: TROPONIN T 2.28 ug/L (0.0-0.011)
[2017-05-04] MEDS: Pantoprazole Inj 80 MG in 0.9% Sodium Chloride 80 ML IV SCH (15:49)
--- NOTE | 2017-05-04 16:48 | NUR ---
Admit Arrived onto floor around 0920. Alert, but confused. Pale. 4th unit of blood infusing upon arrival. Protonix gtt infusing as ordered. Patient moved from [place] to bed. Tele SR with IVCD and then some Bradycardia noted, rate in the low 50s. MD made aware. BP stable. Critical CKMB and troponin levels phoned to MD. On 2 L o2 with sats at 98%. Lungs slightly wheezy with expiration>> MD aware. Patient is incontinent of urine>> brief on. No stool. No SS bleeding. To endo at 1340. Returned from Endo after EGD. No change in status. Taking clear liquids x48 hour. Assisting patient to turn in bed q 2 hours. Heels floating, SCDs on.
[2017-05-04] MEDS: Insulin LISPRO 300 Unit/3 mL Inj SUBQ SCH ×2 (17:14→19:42)
[2017-05-04] MEDS ORDERED: Albuterol-Ipratropium 3 mL Inhalation Solution NEB PRN (18:25)
--- NOTE | 2017-05-04 19:02 | NUR ---
Wheezes Patient with audible wheezes today, worsening this evening. Phoned the MD x2. 1st "watch". 2nd, ordered nebs. Concerned for fluid overload so fuel operator MD has been paged. Reported off to noc shift RN and It was noted that this RN will follow up. IV fluids turned off.
[2017-05-05] VITALS (7 sets, daily range): BP systolic 105–130; BP diastolic 44–71; PULSE 61–87; RESP 22–28; O2SAT 94–97
[2017-05-05 03:46] LABS: BASOPHILS % (AUTO) 0.3 % (0-3); EOSINOPHILS % (AUTO) 1.5 % (0-5); MONOCYTES % (AUTO) 7.5 % (4-12); Mean Corpuscular Hemoglobin 30.4 pg (27.0-35.0); Mean Corpuscular Volume 85.7 fL (81-100); NEUTROPHILS % (AUTO) 81.6 % (40-74); Platelet Count 355 bil/L (150-400)
[2017-05-05] MEDS: Pantoprazole Inj 80 MG in 0.9% Sodium Chloride 80 ML IV SCH ×3 (04:25→15:34)
[2017-05-05] MEDS: 0.9% Sodium Chloride 1,000 ML IV SCH ×2 (04:33→13:55)
--- NOTE | 2017-05-05 04:44 | NUR ---
Chest Pain/Tele ST elevation still seen in multiple leads. Pt reports either 4/10 chest pain (points to L side of chest) or points to LUQ. No obivous cardiac prophylactic measures seen. MD notified. Midnight labs showed stable H/H. Shactor Helper paged by MD and no new orders to initiate heparin gtt or nitro gtt. IVP Morphine for pain. Tolerable. PRN EKGs. care ongoing
--- NOTE | 2017-05-05 04:46 | NUR ---
Mentation Pt alert to self only and has increasing confusion throughout night. Will talk to self and ask bizarre questions (when are we getting out of the squirrels nest?). Monitoring closely. Bed alarm for safety. Care ongoing
[2017-05-05 06:26] LABS: TROPONIN T 5.66 ug/L (0.0-0.011)
[2017-05-05] MEDS: Insulin LISPRO 300 Unit/3 mL Inj SUBQ SCH ×4 (09:02→20:39)
--- NOTE | 2017-05-05 09:58 | PCM.PNMED ---
Subjective Date of Service May 05, 2017 Subjective Patient still confused. Denies any pain. Patient troponin bumped yesterday. Exam Vital Signs Vital Sign - Last Date Time Temp Pulse Resp B/P Pulse Ox O2 Delivery O2 Flow Rate FiO2 05/05/17 04:49 70 24 130/71 95 Nasal Cannula 2.00 05/05/17 00:35 36.5 Intake and Output 05/04/17 05/04/17 05/05/17 Cumulative From/Thru 15:00 23:00 07:00 05/04/17 05:47 - 05/05/17 06:12 Intake Total 2206 ml 667 ml 313 ml 3186 ml Balance 2206 ml 667 ml 313 ml 3186 ml Intake Oral 110 ml 200 ml 310 ml IV Total 1900 ml 557 ml 113 ml 2570 ml Packed Cells 306 ml 306 ml # Voids 3 3 6 # Bowel Movements 0 0 Exam Patient is alert and comfortable confused. Head and neck no icterus Lungs clear anteriorly. Cardiovascular regular rate and rhythm normal S1 and S2 Abdomen soft mildly distended nontender normoactive bowel sounds Extremities no pitting edema at ankles Skin shows no jaundice Lab and Diagnostics Result Diagram: 05/05/17 0320 05/05/17 0320 X-Rays, CTs and MRIs X-RAY CHEST ONE VIEW, PORTABLE IMPRESSION: No acute cardiopulmonary disease process. Dictated by: Arlyn Malone MD, PhD on 05/04/2017 at 8:43 Approved by: Arlyn Malone MD, PhD on 05/04/2017 at 8:43 Cardiac Echo Impressions Echocardiogram Interpretation Summary Left ventricular systolic function is mildly reduced with the ejection fraction visually estimated to be 45-50% with borderline global hypokinesis that is worse in the inferior and posterior segments which are severely hypokinentc, which is new compared to the previous study. Compared to the prior exam, left ventricular function has slightly decreased. There is mild concentric left ventricular hypertrophy with diastolic parameters suggesting a pseudonormalization pattern, consistent with elevated filling pressures, but likely unchanged compared to the previous study. The right ventricle is normal in size and function, and appears unchanged compared to the previous study. The right ventricular systolic pressure is estimated at least 54 mmHg assuming a right atrial pressure of 8 mm Hg, and is likely slightly higher compared to the previous study. The left atrium is severely dilated and has mildly increased in size since the prior echo exam. Right atrial size is normal and has significantly decreased in size since the prior echo exam. There is mild mitral regurgitation and mild to moderate tricuspid regurgitation that are unchanged compared to the previous study. There is no other significant valvular heart disease. The ascending aorta is at the upper limits of normal in size. The patient was in normal sinus rhythm with a probable bundle branch block rhythm with heart rates between 60-65 bpm during the study which is considerably faster compared to the previous study. Reading Physician:12:42 PM Assessment & Plan 72 -year-old female with history of dementia, hyperlipidemia, HTN, diabetes, CAD , and CVA presents to the ED via EMS due to chest pain with EKG changes. Again she is a poor historian. I did a rectal exam yesterday was nonbloody. It was anything melanotic. EGD done yesterday showed ulcers in the duodenum. One of the ulcers had pigmented spot. Please refer to my EGD note for further details of the findings. Major event from past 24 hours include mild bump in troponin. No bowel movements noted. Hemoglobin is stable at 11.6-11.5-11.5. The ulcers are being adequately treated with medical therapy. From GI leyva, there is nothing further I can add. IV Protonix drip for total of 48 hours Clear liquid diet for total of 48 hours Because patient had some any ulcers in the duodenum, I would like to redo EGD in about 2 months. Would avoid NSAIDs. Aspirin and Plavix will increase her risk of bleeding however cardiac and stroke prevention be higher priority. Coumadin would also increase her likelihood of bleeding as well. But again cardiac and stroke prevention would be a higher priority. Starting tomorrow, switch to by mouth Protonix and advanced diet as tolerated. At this point, cardiac situation will be higher priority over her GI situation. If cardiac intervention needs to be done with anticoagulation or platelet inhibiting drugs, I recommend that she will need higher level care for her GI situation. GI Prophylaxis: H2 ingrid (famotidine every 12) VTE Prophylaxis: Other (contraindicated due to GI bleed) VTE Mechanical Devices: Intermittant Pneumatic CD Resuscitation Status: CPR: Attempt Resuscitation Ryan Toth MD May 05, 2017 09:58 Upper scope completed by Dr. Toth on 05/04 shows multiple duodenal ulcers, with no active bleeding - Patient transfused 4 units PRBCs - Post transfusion H&H 11.0 - Trend H&H overnight, repeat transfusion if less than 8.0 ST elevation MN, present on arrival, active Likely due to hypoperfusion secondary to anemia, possibly in combination with coronary defect. EKG meets sgarbossa criteria for inferior infarct - Echo ejection fraction 45-50% other results as above - Cardiology consulted, catheter not suggested due to acute bleed in conjunction with ANGY Acute kidney injury, present on arrival, active Likely due to hypoperfusion secondary to anemia - Patient received 2 L normal saline in ED - No known history of kidney disease Acute leukocytosis, present on arrival, active Likely due to stress reaction secondary to ischemic injury Dementia, present on arrival, active Partner reports that this is gradually worsening Patient sees Dr. Saucedo from neurology - The only labs in [facility] are from 2013 History of Type II diabetes - Glucose on arrival to 280s - Started on medium dose correction - Transition to long-acting as appropriate History of Hypertension - Hold all antihypertensive medications at this time Coronary artery disease Per patient catheter in 2004 with no interventions at that time - Patient presents a poor historian, records needed to further elucidate past interventions. Disposition: Patient admitted under inpatient status with expected length of stay > 2 midnights for severity of present symptoms, complexities of treatment plan and risk for adverse event GI Prophylaxis: H2 ingrid (famotidine every 12) VTE Prophylaxis: Other (contraindicated due to GI bleed) VTE Mechanical Devices: Intermittant Pneumatic CD Resuscitation Status: CPR: Attempt Resuscitation Ryan Toth MD May 05, 2017 09:58
--- NOTE | 2017-05-05 11:54 | DRSVH ---
PROCEDURE: CT BRAIN WITHOUT CONTRAST ([id number]) INDICATIONS: encephalopathy TECHNIQUE: Noncontrast 4.5 mm thick angled axial sections acquired from the foramen magnum to the vertex, with c oronal reformats. COMPARISON: [facility], CT, HEAD WITHOUT CONTRAST, 12/26/2016, 9:19. FINDINGS: Image quality: Partially degraded by motion artifact. CSF spaces: Basal cisterns are patent. No extra-axial fluid collections. The ventricles are symmet vahid in size and shape. Brain: No intracranial bleeds or masses. There is cerebral volume loss for age, with resultant vent ricular and sulcal prominence. There are periventricular and deep white matter chronic small vessel ischemic changes. There is intracranial internal carotid artery atherosclerosis. Skull and face: Calvarium and visualized facial bones appear intact, without suspicious lesions. Sinuses: Visualized sinuses and mastoids are clear. IMPRESSION: No acute process. Volume loss and small vessel ischemic disease. Dictated by: Renato Peacock M.D. on 05/05/2017 at 11:51 Approved by: Renato Peacock M.D. on 05/05/2017 at 11:52
--- NOTE | 2017-05-05 12:54 | ABG ---
DateTimeAnalyzed 12:47:00 -_ pH ____7.406 - 7.350 7.450 pCO2 ___29.2__ -mmHg 35.0 45.0 pO2 ___73.8__ -mmHg 69.0 116 HCO3- ___18.0__ -mmol/L 22.0 26.0 ABE ___-5.3__ -mmol/L -2.0 2.0 tHb ___11.3__ -g/dL 12.0 18.0 O2Hb ___93.4__ -% COHb ____1.1__ -% 0.0 1.5 MetHb ____1.0__ -% 0.4 1.5 sO2 ___95.4__ -% FIO2 ___36.0__ -% Drawn By jmw - Date/Time Notified____ 12:54:00 -_ Liter_Flow ____4.0__ -L/min Oxygen Device 1 __CANNULA - Notified By JMW - Notified Whom DR HASANDRAS - B 751 -mmHg tO2 ___14.9__ -Vol% Andres test _Positive -
--- NOTE | 2017-05-05 13:12 | PROG NOTE ---
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 Loo, who saw her last in 2007 because of exertional dyspnea. At that time, she was found to have a new left bundle branch block and an echocardiogram suggested hyperdynamic LV systolic function with moderate TR with significant pulmonary hypertension and a dipyridamole sestamibi study showed no evidence of ischemia and therefore her dyspnea was felt to likely be pulmonary related, possibly related to sleep apnea. There are no other records available since then, but she apparently has been diagnosed with atrial fibrillation and has had a stroke and is on warfarin. She presented yesterday morning to the emergency department with intermittent chest discomfort and confusion and made the history challenging. Her ECG showed a left bundle branch block with concerning new inferior ST elevation. While she was being readied for emergent cardiac catheterization, she was found to have melena with a hematocrit of 18%, and therefore this precluded any invasive treatment and she was admitted and transfused. Her initial BUN was 63 with a creatinine of 2.2. Her initial troponin was 0.01 but has subsequently climbed and peaked at 5.82 with the most recent being 5.66. An echocardiogram showed mildly reduced LV function with an EF of 45% to 50% with a new inferoposterior wall motion abnormality but normal right ventricular size and function with pulmonary artery pressure of 54 mmHg, slightly higher than previous, with mild-moderate mitral and tricuspid regurgitation both unchanged from previous. She underwent an EGD which revealed numerous ulcers with four large duodenal ulcers without any active bleeding. Therefore no further intervention was entertained. Since admission, she has had waxing and waning cognitive state which her significant other states has been a chronic problem over the last year. She has previously seen Dr. Saucedo for her previous stroke-like symptoms. She apparently has relatively poor health at home with chronically poor and fluctuating cognition. EXAM: She currently answers questions intermittently and oftentimes incompletely, trailing off before providing any complete answer. She states that she had some chest discomfort but later denied this. She denies any significant dyspnea. Blood pressure this morning is 128/55 with an O2 saturation of 94% on 2 L. Weight is 92.7 kg without much change from yesterday, although she had around a 3 L positive fluid balance. Lungs: Grossly clear bilaterally. CV: Regular rate and rhythm with distant heart tones but no appreciable murmurs or gallops. There is no obvious JVD although nuchal obesity makes this challenging. Abdomen: Moderate severely obese but nondistended and nontender. Extremities cool without any edema. LABORATORY: Potassium is 4.6 with a BUN of 40 and a creatinine of 1.1. AST is 150 with an ALT of 38. Bicarb is 12. Her hematocrit this morning is 32 and is stable after transfusion, although her white count is now 17.7. ECG: She continues to have a left bundle branch block with some slight residual inferior ST elevation although improved from presentation. IMPRESSION: 1. Probable completed inferoposterior myocardial infarction in the setting of an acute gastrointestinal bleed. Even though there was no active bleeding seen at the time of esophagogastroduodenoscopy, her risk of recurrent bleeding is high, and given the fact that she likely has completed her infarct and has multiple comorbidities, I would not pursue any invasive evaluation at this time. Thus, I would continue with medical management of her infarct which would include low-dose beta blockade and angiotensin converting enzyme inhibitor as best her blood pressure, heart rate, and renal function will allow, and I will start her on metoprolol 25 mg b.i.d. and lisinopril 2.5 mg b.i.d. Her cognitive issues are concerning for some other ongoing event although her significant other says that she has had waxing and waning cognitive function over the last year. She is currently going for a head CT, and I will defer further management of this to the hospitalist. She has a rather profound metabolic acidosis and this should be vigorously corrected to help optimize her cardiac function which appeared to be only mild to moderately impaired at the time of her echocardiogram. Overall, given her multiple comorbidities, I suspect that her prognosis is relatively poor and further discussions in regards to aggressiveness of care should be considered. 2. Hypertension. She appears to have remained hemodynamically stable. 3. Acute gastrointestinal bleed, now successfully treated with transfusion with a stable hematocrit. Again, I would avoid any anticoagulation at this point. 4. History of paroxysmal atrial fibrillation. No evidence of any recurrence here, but I would ensure that her potassium and magnesium stay greater than 4.0 and 2.0, respectively. 5. Diabetes. Per the hospitalist. 6. Hyperlipidemia. I would restart statin therapy with atorvastatin 40 mg daily. PLAN: 1. Docena low-dose beta blockade, PURA inhibitor and statin therapy. 2. Continue to avoid anticoagulation. 3. Further evaluate the source of her cognitive deficit and metabolic acidosis. This will be deferred to the hospitalist. 4. Continue to track hematocrit closely. I spent 1 hour and 4 minutes reviewing old medical records as well as her current medical records, interviewing and examining the patient, discussing with her care team, and discussing her case with her family and significant other. LOIS
--- NOTE | 2017-05-05 13:49 | NUR ---
Med Rec pending Family will contact PCP/pharmacy for med list tomorrow. Med list will be available tomorrow.
--- NOTE | 2017-05-05 17:53 | NUR ---
Mentation/Resp/Tele Patient continues to be confused, only oriented to self. Making confused statements. No answering questions coherently. Able to sleep some this morning until visitors started to arrive. Patient was also taken to get a CT of head. On nasal canula 2L at beginning of shift, but now is on 4 L NC. Sats are at 98%. Tele has been SR, 60-70s with IVCD and ST elevation. MDs aware. Spouse updated on POC.
--- NOTE | 2017-05-05 20:11 | PCM.PNMED ---
Subjective Date of Service May 05, 2017 Subjective Overnight: Patient had recurrence of chest pain overnight cardiology was consulted with no new recommendations given risk of GI bleed, hemoglobin remained stable overnight after blood transfusion. Today: The patient denied any chest pain in the a.m. as well as any nausea, abdominal pain, shortness of breath. The patient however was unable to completely form sentences which her significant other stated was possibly near baseline. This case was discussed with cardiology who recommended no interventions at this time given risk of GI bleed. The patient's CODE STATUS was discussed with the significant other and the patient was made DO NOT RESUSCITATE and DO NOT INTUBATE, given her state of progressive dementia reportedly over a years. Exam Vital Signs Vital Sign - Last Date Time Temp Pulse Resp B/P Pulse Ox O2 Delivery O2 Flow Rate FiO2 05/05/17 04:49 70 24 130/71 95 Nasal Cannula 2.00 05/05/17 00:35 36.5 Intake and Output 05/04/17 05/04/17 05/05/17 Cumulative From/Thru 15:00 23:00 07:00 05/04/17 05:47 - 05/05/17 06:12 Intake Total 2206 ml 667 ml 313 ml 3186 ml Balance 2206 ml 667 ml 313 ml 3186 ml Intake Oral 110 ml 200 ml 310 ml IV Total 1900 ml 557 ml 113 ml 2570 ml Packed Cells 306 ml 306 ml # Voids 3 3 6 # Bowel Movements 0 0 Exam General: Elderly female appearing approximately stated age, alert but only oriented to place or time believe she is in [place] currently, No acute distress, well-developed, well-nourished Eyes: Pupils equal, round, and reactive to light. Anicteric sclerae, moist conjunctivae. Head: Normocephalic, atraumatic. Moist mucous membranes without central cyanosis Neck: Normal range of motion, no lymphadenopathy noted, no JVD Cardiovascular: Distant heart sounds but Regular rate and rhythm with no murmurs , rubs, or gallops appreciated Pulmonary: Clear to auscultation bilaterally with no crackles, wheezes, or rhonchi. Normal respiratory effort with no use of accessory muscles. Abdomen: Bowel tones present. Soft, nontender, nondistended. Extremities: No clubbing, cyanosis, edema Skin: Normal temperature, turgor, and texture; no rash, ulcers, or subcutaneous nodules appreciated. Neurological: Nonfocal neurologic exam Psychiatric: Normal mood and affect. Obvious dementia, Oriented to person but not place or time the patient know she is somewhere near [place] but is unoriented even to the [place] President Lab and Diagnostics Result Diagram: 05/05/17 0320 05/05/17 032 X-Rays, CTs and MRIs X-RAY CHEST ONE VIEW, PORTABLE IMPRESSION: No acute cardiopulmonary disease process. Dictated by: Arlyn Malone MD, PhD on 05/04/2017 at 8:43 Approved by: Arlyn Mlaone MD, PhD on 05/04/2017 at 8:43 Cardiac Echo Impressions Echocardiogram Interpretation Summary Left ventricular systolic function is mildly reduced with the ejection fraction visually estimated to be 45-50% with borderline global hypokinesis that is worse in the inferior and posterior segments which are severely hypokinentc, which is new compared to the previous study. Compared to the prior exam, left ventricular function has slightly decreased. There is mild concentric left ventricular hypertrophy with diastolic parameters suggesting a pseudonormalization pattern, consistent with elevated filling pressures, but likely unchanged compared to the previous study. The right ventricle is normal in size and function, and appears unchanged compared to the previous study. The right ventricular systolic pressure is estimated at least 54 mmHg assuming a right atrial pressure of 8 mm Hg, and is likely slightly higher compared to the previous study. The left atrium is severely dilated and has mildly increased in size since the prior echo exam. Right atrial size is normal and has significantly decreased in size since the prior echo exam. There is mild mitral regurgitation and mild to moderate tricuspid regurgitation that are unchanged compared to the previous study. There is no other significant valvular heart disease. The ascending aorta is at the upper limits of normal in size. The patient was in normal sinus rhythm with a probable bundle branch block rhythm with heart rates between 60-65 bpm during the study which is considerably faster compared to the previous study. Reading Physician:12:42 PM Assessment & Plan 72 -year-old female with history of dementia, hyperlipidemia, HTN, diabetes, CAD , and CVA presents to the ED via EMS due to chest pain onset last evening. Acute blood loss anemia secondary to duodenal ulcer bleed, present on arrival, active - Rectal exam at admission showing stool in the vault, nonbloody. Less likely lower GI bleed - Upper scope completed by Dr. Toth on 05/04 shows multiple duodenal ulcers, with no active bleeding - Patient transfused 4 units PRBCs - Post transfusion H&H 11.0, her hemoglobin remained stable in the 11s post transfusion and EGD which noted no active bleeding from the duodenal ulcers - Trend H&H overnight, repeat transfusion if less than 8.0 - Continue to monitor closely - Continue Protonix every 48 hours to be transitioned to oral on May 06 - Clear liquid diet - GI to consider rescoping in [address] elevation [place] with known history of chronic coronary artery disease, present on arrival, active - Likely due to type 2 injury from hypoperfusion secondary to anemia, possibly in combination with coronary defect. - Troponins trended up to 5.8 to until decreasing down to 5.66 - EKG meets sgarbossa criteria for inferior infarct, possible PDA lesion - Echo ejection fraction 45-50% other results as above - Cardiology consulted, catheter not suggested due to acute bleed in conjunction with ANGY recommendations to institute low-dose beta blockade, PURA inhibitor and statin therapy to be initiated once liver function, kidney function, and blood pressure allow Acute hypotension, present on arrival, stable - Likely secondary to blood loss anemia above - Blood pressure on arrival 86/42 - Patient was given 2 L of fluid in the ED as well as 4 units PRBCs - Vitals have been stable since that time - Continue to monitor Q4 Acute hypoxic respiratory distress, present on arrival, stable - Patient is not on oxygen at home - Currently Requiring 2 L nasal cannula - Acute wheezing noted, however DuoNeb scheduled only for increasing oxygen needs due to recent VT Acute kidney injury, present on arrival, active - Creatinine of 2.24 at admission improved to 1.07 the next day - Likely due to hypoperfusion secondary to anemia - Patient received 2 L normal saline in ED - No known history of kidney disease Acute leukocytosis, present on arrival, active - Likely due to stress reaction secondary to ischemic injury - Monitor Acute liver injury, present on admission, active - Likely again due to hypoperfusion due to severe anemia as well as ischemic cardiomyopathy - Monitor Chronic Dementia, present on arrival, active - Partner reports that this is gradually worsening - Patient sees Dr. Saucedo from neurology - The only labs in [facility] are from 2013 History of Type II diabetes - Glucose on arrival to 280s - Started on medium dose correction - Transition to long-acting as appropriate History of Hypertension - Hold all antihypertensive medications at this time Patient is DNR/DNI per our discussion with her spouse The patient is likely to remain inpatient for the foreseeable future likely for 5 more days at minimum and will likely require a assisted facility for rehabilitation have. GI Prophylaxis: Proton Pump Inhibitor VTE Prophylaxis: Other (contraindicated due to GI bleed) VTE Mechanical Devices: Intermittant Pneumatic CD Resuscitation Status: DNR/DNI:Do Not Resuscitate/Intubate Leonardo Post DO May 05, 2017 07:10
[2017-05-06] MEDS: Pantoprazole Inj 80 MG in 0.9% Sodium Chloride 80 ML IV SCH ×2 (02:14→13:20)
--- NOTE | 2017-05-06 02:37 | NUR ---
Mentation/tele pt alert, oriented to self only, chyna, follows commands as able, extremities weak, helps with turning, pt intermittently figity, pt forgetful/confused, pt has to be reminded to keep o2 on, pt pulls at sheets, pt awake until approx 0200 then able to go to sleep, pt in light sleeper, tele=sr, ivcd, occ pac/pvc, pt denies cp, bp stable, afebrile pt denies sob, sats on three liters o2 per nc=93-97%, resp rate in 20's, hob up. ls- decreased with right crackles, large inc per brief, denies n/v, no bm, no s/sx of bleeding, protonix gtt per orders, see ccu flow sheet, plan: change to po protonix in am per note, monitor h/h, monitor tele, Addendum: 05/06/17 at 0524 by ETTA ISAACS RN updated on pt's am hgb and hct results and also map=60 with pt asleep, no new orders,
[2017-05-06 03:50] LABS: BASOPHILS % (AUTO) 0.2 % (0-3); EOSINOPHILS % (AUTO) 2.4 % (0-5); MONOCYTES % (AUTO) 9.4 % (4-12); Mean Corpuscular Hemoglobin 29.6 pg (27.0-35.0); NEUTROPHILS % (AUTO) 74.5 % (40-74); Platelet Count 292 bil/L (150-400)
[2017-05-06 04:18] VITALS: BP 100/40; PULSE 60; RESP 21; O2SAT 93
[2017-05-06 04:35] LABS: INR 1.24 ratio
[2017-05-06 04:41] LABS: Magnesium 1.9 mg/dL (1.6-2.6); Phosphorus 3.5 mg/dL (2.5-4.9)
[2017-05-06 04:49] LABS: TROPONIN T 5.49 ug/L (0.0-0.011)
[2017-05-06] MEDS: Insulin LISPRO 300 Unit/3 mL Inj SUBQ SCH ×4 (07:59→22:00)
[2017-05-06 08:50] VITALS: BP 96/46; PULSE 58; RESP 22; O2SAT 95
[2017-05-06] MEDS ORDERED: 0.9% Sodium Chloride 250 ML IV ONE (10:05)
[2017-05-06] MEDS ORDERED: 0.9% Sodium Chloride 500 ML IV ONE (10:35)
--- NOTE | 2017-05-06 11:01 | NUR ---
Palliative Care Palliative Care received verbal order from Dr Ca 05/06/17 to assist with goals of care. Patient admitted 05/04/17. Rose Boateng () [phone] Palliative Care to follow. Parris Weaver
--- NOTE | 2017-05-06 11:22 | NUR ---
NUTRITION FOLLOW UP: ASSESS: 72 YO F admitted to CCU for STEMI, GI bleed with duodenal ulcer. Palliative care consult for goals of care. Pt has been NPO/Clear liquids X 2 days. Pt has dementia. PMHx: Hyperlipidemia, cerebral infarction, HTN, diabetes, CAD. DIET: Clear liquids. No PO intake recorded. LABS: Glu 148, Ca 8.0, AST 69, Alb 2.7 MEDICATIONS: Reviewed. GI: No stool reported. SKIN: No issues identified. ANTHROPOMETRICS: Current Wt: 91.7 kg, BMI: 33.6 kg/m2. IBW: 47.8 kg (200.8% IBW) ESTIMATED NEEDS (BMI): Calories: 3698-4796 kcal/day (20-22 kcal/kg BW) Protein: 68-85 g/day (1.2-1.5 g/kg IBW) NUTRITION DIAGNOSIS: 1) Inadequate oral intake related to decreased ability to consume sufficient energy as evidenced by Clear liquids/NPO status X 2 days. INTERVENTION: 1) Will await timely advancement of diet and plan of care decisions. MONITOR/EVALUATE: Diet advance/tolerance, PO intake, labs, weight, POC, GI/nutrition status. Follow per moderate nutrition risk guidelines.
[2017-05-06] MEDS: 0.9% Sodium Chloride 1,000 ML IV SCH ×2 (11:24→20:29)
[2017-05-06] MEDS ORDERED: CITA40TA13 PO (11:29)
[2017-05-06] MEDS ORDERED: LEVE750T3 PO (11:29)
[2017-05-06] MEDS ORDERED: HYG25 PO (11:29)
[2017-05-06] MEDS ORDERED: LEVO75TA4 PO (11:29)
[2017-05-06] MEDS ORDERED: LOVA40TA PO (11:29)
[2017-05-06] MEDS ORDERED: GLIM2TAB2 PO (11:29)
[2017-05-06] MEDS ORDERED: CAND32TA9 PO (11:29)
[2017-05-06] MEDS ORDERED: ZONI25CA3 PO (11:29)
[2017-05-06] MEDS ORDERED: CHOL500051 PO (11:29)
[2017-05-06] MEDS ORDERED: WARF5TAB7 PO (11:29)
[2017-05-06] MEDS ORDERED: HYDR-3940 PO (11:29)
--- NOTE | 2017-05-06 11:33 | NUR ---
Med Rec Pt's family member brought in bubble pack, able to complete Med Rec. Paged Hospitalist on R2 to notify him that Med Rec has been completed.
--- NOTE | 2017-05-06 13:57 | PCM.CONPAL ---
Date of Service May 06, 2017 Date of Hospital Admission: May 04, 2017 at 07:58 Date of Palliative Consult: May 06, 2017 Requesting Provider: Deborah Ca DO Reason Palliative Care Consult: Goals of Care Discussion Hospital Unit @time of consult: Critical Care Palliative Care Recommendation 72-year-old female admitted with chest pain and evidence of STEMI in setting of severe anemia and acute renal insufficiency. Found to have multiple upper GI ulcers on EGD. Given comorbidities, cardiology recommendation thus far has been for medical management. Palliative medicine consulted to assist patient and her family in determination of goals of care Summary of palliative recommendations: -Symptom management (Pain/other)- generally improved and feeling more comfortable. Occasional low-level chest discomfort- ordered 2-4 mg MS IV prn significant chest discomfort; acetaminophen orally for lesser discomfort. Other management per medical/cardiology/GI -DPOA/Advanced Directives/POLST- per patient and family wish, DNR/DNI/Limited interventions. Nancy Boateng is the patient's spouse ([phone]) and says that they have documentation for POA, advanced directive, POLST, etc. at home and she will bring the documentation in tomorrow. -Family/emotional support- patient has excellent support from her spouse and spouse's daughter. Multiple friends visiting throughout the day today providing emotional support as well Additional Medical Diagnoses with primary management by Hospitalist team include : Acute blood loss anemia secondary to duodenal ulcer bleed, present on arrival, active Acute ST elevation NH with known history of chronic coronary artery disease, present on arrival, active Acute hypotension, present on arrival, stable Acute hypoxic respiratory distress, present on arrival, stable Acute kidney injury, present on arrival, active Acute leukocytosis, present on arrival, active Acute liver injury, present on admission, active Chronic Dementia, present on arrival, active History of Type II diabetes History of Hypertension Problems: End of Life Preferences DNR/DNI/Limited interventions Goals of Care Recovery and returned home Disposition To be determined Resuscitation Status Resuscitation Status: DNR/DNI:Do Not Resuscitate/Intubate POLST Updates/Changes Previous POLST?: Yes POLST Last Review Date: May 06, 2017 (reviewed verbally) POLST Review Outcome: No Change . Advanced Care Planning Address: POLST, Durable Power of Mammography Technologist Pain: Mild Symptom management: Dyspnea, Pain Pt History History of Present Illness Per admission H&P: 72 -year-old female with history of dementia, hyperlipidemia, HTN, diabetes, CAD , and CVA presents to the ED via EMS due to chest pain onset last evening. Patient described the pain as a 10/10 which radiates to the L jaw. Associated symptoms include nausea, vomiting, diarrhea, and black stools for the last few months and generalized pain which appears to be baseline chronic. Denies peripheral edema, SOB, or abdominal pain. Patient is a poor historian and not currently oriented to place or time, it is hard to tell whether this is a new development or if this is her baseline dementia. A family member/friend has been notified and is in route to see the patient. Med rec pending until additional records can be obtained. She had a cath in 2004 which showed mild disease without obstruction and did not have any intervention otherwise. Blood pressure in route to the hospital 101/60 with 324 mg of Aspirin was given en route. The pt was initially brought to the parking [facility] and was then sent to [facility] by the doctor after noting ST elevations on EKG. On arrival to [facility] EKG was obtained which showed normal sinus rhythm with ST elevations in leads II, III, and aVF but also showed a left bundle-branch block. Labs were taken and the patient was found to have a hemoglobin of 6.0. This patient was subsequently transfused with 4 units of blood. Blood pressures were decreased on arrival at 86/42, post transfusion of platelets the patient's blood pressure continued to increase and is currently 118/53. Pulse borderline low, respirations normal, patient initially requiring 2 L but has since been saturating well on room air. Other significant lab findings are as follows WBC 14.6, platelets 436, sodium 131, chloride 98, bicarbonate 16, BUN 63, creatinine 2.24, glucose 262. Dr. Shaver was initially consulted in this case and after looking at the EKG concluded that the patient meets sgarbossa criteria for a likely inferior infarct, however in light of her obvious bleeding in conjunction with her increased creatinine it would be unwise to initiate any interventions at this time especially catheterization and/or heparinization. After the patient is considerably more stable and EKG can be reobtained and diagnosis of coronary ischemia is more likely to be clear-cut at that point. Dr. Toth also saw the patient and based on a rectal exam believes that her bleeding is likely upper GI as opposed to lower, and will take the patient for an upper scope today, and continue with lower scope if no significant findings are appreciated. Palliative medicine consulted to assist patient and her family in determination of goals of care Prior to visiting, I reviewed her records in the EMR in detail. Spoke with her bedside nurse as well. Admitted with severe anemia in addition to chest discomfort- seen in consultation by gastroenterology and cardiology- EGD revealed multiple gastric and duodenal ulcers- cardiology did not feel she was a good candidate for catheterization or acute intervention and recommended medical management (which has been limited thus far by her relative hypotension and other medical issues) On my arrival, patient was resting in bed in no distress. Her spouse, Nancy Boateng ([phone]) was at bedside and the 3 of us spoke at length. During the interview, the patient's only complaint was of some very mild chest discomfort. Her O2 saturation monitor did occasionally alarm showing O2 saturations as low as the 70s which recovered quickly with a couple of deep breaths. Patient denied any sense of dyspnea or air hunger, nausea, abdominal pain or other distress. Nancy felt that the patient was significantly better today, much less confused and much closer to her normal self. They expressed some concern and frustration over what they see as different stories from different doctors. Spent some time inquiring as to their perceptions and then answering questions they had and reframing what has been going on in the hospital. By the end of our conversation both felt that they had a much better understanding of the situation. Nancy did express frustration with the amount of time it took for the patient's illness to be diagnosed (despite with they saw as nearly continuous, intractable nausea, vomiting, diarrhea)- she thinks that the patient had been deteriorating for 6-8 weeks on the outside, and despite multiple visits to PCPs office and the ER at [facility] no one had made a diagnosis. We also talked about the anticipated course of care in the coming days, the potential need for SNF placement versus home with home health, reviewed their advanced directive wishes, etc. Past Medical History Significant PMH Noted: Obesity and hyperlipidemia Cerebral infarction HTN Diabetes CAD Cognitive decline, though Nancy physicians have said this is "not dementia" Surgical History Bilat hip replacement Cath in 2004 which showed mild disease w/o obstruction and did not have any intervention otherwise. Social History Occupation: Retired; previously worked as an ICU nurse Family Members Issues: Nancy notes that they have been partners for 30 years and for 3 years She is the patient's primary caregiver (with significant assistance by Nancy's daughter John) Patient and Nancy hope that she will recover to the baseline she was at approximately 3 months ago; as noted in HPI, significant frustration at the delay in diagnosis and definitive therapy Has been followed by Home Health in the past and also has had brief SNF stays; they receive Meals on Wheels at midday and Nancy does additional food preparation as needed Social Support: Good support from Nancy's daughter Progressive limitation of socializing over the last several years, though they remain in contact with friends in the community and through the day today had multiple visitors Living Situation: Live together in their home in [place] Prior to the last several months, the patient enjoyed walking in her yard and caring for/looking at her ibrahim in the yard, watching television and occasionally going to small family events such as birthdays Spiritual Support Spiritual Support Caodaism Palliative Performance Scale PPS Patient Status: Baseline (as of approximately 3 months ago) PPS Ambulation: Reduced (has a cane and a walker but used them only infrequently) PPS Activity: Unable to do hobby/house work PPS Self-Care: Occasional assistance necessary PPS Intake: Normal PPS Conscious Level: Full or confusion (mild progressive cognitive decline/ forgetfulness) Performance Scale: 60% ADLs ADL Patient Status: Baseline (as of 3 months ago) ADL Ambulation: Reduced ADL Dressing: Full ADL Feeding: Full ADL Hygene/bathing: Occasional assistance necessary ADL Transfers: Full POLST at Time of Admission Previous POLST?: Yes (copies are at home-Nancy says she will bring them in tomorrow) Cardiopulmonary Resuscitation: DNR: Do Not Attempt Resuscitation Medical Interventions: Limited Additional Interventions POLST Status: No change from last encounter Allergy Allergies Reviewed: Yes Medications Current Medications: Current Medications Famotidine 20 mg DAILY PO; Start 05/04/17 at 20:30; Stop 05/04/17 at 20:30; Status DC Insulin Human Lispro Nutritional Dose to be given pr... [facility] SUBQ Last administered on 05/06/17t 12:15; Admin Dose 1 UNIT; Start 05/04/17 at 17:30 Dextrose/Water 250 ml @ 750 mls/hr Q20M PRN IV; Start 05/04/17 at 14:10 Pantoprazole/ Sodium Chloride 100 ml @ 10 mls/hr Q10H IV Last administered on 13:20; Admin Dose 10 MLS/HR; Start 05/04/17 at 16:30; Stop 05/06/17 at 16:31 Albuterol/ Ipratropium 3 ml Q4H PRN NEB; Start 05/04/17 at 18:25 Metoprolol Tartrate 25 mg BID PO Last administered on 05/05/17 20:36; Admin Dose 25 MG; Start 05/05/17 at 05:30 Lisinopril 2.5 mg BID PO Last administered on 05/05/17 20:36; Admin Dose 2.5 MG ; Start 05/05/17 at 08:30 Atorvastatin Calcium 40 mg 40 mg HS PO Last administered on 05/05/17 20:36; Admin Dose 40 MG; Start 05/05/17 at 21:00 Sodium Chloride 1,000 ml @ 100 mls/hr Q10H IV Last administered on 05/06/17 11 :24; Admin Dose 100 MLS/HR; Start 05/06/17 at 10:05 Morphine Sulfate 2-4 mg IV Q 2 hr prn chest pain Q2 PRN IVPUSH; Start 05/06/17 at 13:40 Scheduled Candesartan Cilexetil (Candesartan Cilexetil) 32 Mg Tablet 32 MG PO MORNING Chlorthalidone (Chlorthalidone) 25 Mg Tablet 25 MG PO DAILY Cholecalciferol (Vitamin D3) (Vitamin D) 5,000 Unit Capsule 5,000 UNIT PO DAILY Citalopram (Citalopram) 40 Mg Tablet 40 MG PO DAILY Glimepiride (Glimepiride) 2 Mg Tablet 2 MG PO DAILYAC Hydralazine (Hydralazine) 50 Mg Tablet 50 MG PO BID Levetiracetam (Levetiracetam) 750 Mg Tablet 750 MG PO BID Levothyroxine (Levothyroxine) 75 Mcg Tablet 75 MCG PO DAILY Lovastatin (Lovastatin) 40 Mg Tablet 40 MG PO HS Warfarin Sodium (Warfarin Sodium) 5 Mg Tablet 5 MG PO Evening Zonisamide (Zonisamide) 25 Mg Capsule 25 MG PO BID Current Treatments Oxygen: Yes IV Fluids: Yes Telemetry: Yes Critical Care Unit: Yes Objective Findings Exam Vital Sign - Last Date Time Temp Pulse Resp B/P Pulse Ox O2 Delivery O2 Flow Rate FiO2 05/06/17 08:50 Supplement Oxygen 05/06/17 08:50 37.2 58 22 96/46 95 3.00 Intake and Output 05/05/17 05/05/17 05/06/17 Cumulative From/Thru 15:00 23:00 07:00 05/04/17 05:47 - 05/06/17 05:07 Intake Total 933 ml 599 ml 4818 ml Output Total 3 ml 3 ml Balance 930 ml 599 ml 4815 ml Intake Oral 733 ml 480 ml 1523 ml IV Total 200 ml 119 ml 2989 ml Packed Cells 306 ml Output Urine Total 3 ml 3 ml # Voids 3 3 12 # Bowel Movements 0 0 Objective Obese woman lying in bed, pale with cool skin. Vital signs noted. Somewhat sallow complexion. Head and neck exam without acute focal findings. Lungs clear anterolaterally, heart sounds distant and regular. Abdomen is obese, soft, nontender and without peritoneal signs. Lower extremities with SCDs in place; no palpable pitting edema. Neurologic nonfocal/not lateralized. Lab/Diagnostics Lab and Imaging results reviewed in detail in EMR. Time spent Total time 85 minutes; >50% face to face with patient and family, providing counselling regarding plans and recommendations, and in care coordination with her medical teams. Of the above total time, 15 minutes counseling for advanced care planning with the patient and her spouse copies to: Sandra Canas PA-C; Andres Corona MD, David F MD May 06, 2017 13:57
--- NOTE | 2017-05-06 14:38 | NUR ---
Social Work: Initial Assessment/Multidisciplinary Rounds D: Per EMR review, patient is a 72 year old female admitted for STEMI/GI Bleed/Chest Pain. Pt is Medicare with [employer]; pt states she has no LTC or VA benefits. PCP is Sandra Canas PA-C. NOK is Rose Boateng, , . Advanced directives information declined. Readmit score is low, 1/8. Pt discussed in Multidisciplinary rounds. Capacity for self care discussed; patient lives at home with her . She is pleasantly confused. TELEVISION MAINTENANCE MAN met with the patient and at bedside. Social work/dcp role explained, contact information and discharge planning checklist provided. See initial assessment. Patient lives with her spouse in [place], in a single story home with 2 steps to enter. patient has been using a cane and FWW for ambulation as she has felt increasingly weak. The patient has a history with [facility] and [facility] for rehab. They are very familiar with discharge planning and at this time do not have an idea of what the patient will need for discharge although they hope that she will be able to go to [facility] for a few weeks to get stronger. TELEVISION MAINTENANCE MAN informed them that case management will continue to follow her clinical progress and will make necessary referrals once ordered by her physician. They both confirm that preferences are for [facility] or [facility]. They declined to review the SNF and HH options provided on the [employer]. A: Pt who is currently in CCU. P: Evolving; TELEVISION MAINTENANCE MAN to continue to follow to assess pt's discharge needs and coordinate discharge pending physicians orders. SRINATH Tolliver Addendum: 05/06/17 at 1446 by JANNETTE VICTOR Amended: Links added.
--- NOTE | 2017-05-06 15:18 | PCM.PNMED ---
Subjective Date of Service May 06, 2017 Subjective No acute overnight events. Patient was resting in bed when I came to see her. She did complain of some chest pain, but could not very well describe it due to her dementia. Palliative care was consult to discuss goals of care and to assist with pain management. Patient's will bring in the POA and POLST form tomorrow. Chest pain was relieved with morphine. Exam Vital Signs Vital Sign - Last Date Time Temp Pulse Resp B/P Pulse Ox O2 Delivery O2 Flow Rate FiO2 05/06/17 08:50 Supplement Oxygen 05/06/17 08:50 37.2 58 22 96/46 95 3.00 Intake and Output 05/05/17 05/05/17 05/06/17 Cumulative From/Thru 15:00 23:00 07:00 05/04/17 05:47 - 05/06/17 05:07 Intake Total 933 ml 599 ml 4818 ml Output Total 3 ml 3 ml Balance 930 ml 599 ml 4815 ml Intake Oral 733 ml 480 ml 1523 ml IV Total 200 ml 119 ml 2989 ml Packed Cells 306 ml Output Urine Total 3 ml 3 ml # Voids 3 3 12 # Bowel Movements 0 0 Exam General: No acute distress, well-developed, well-nourished, appropriately interactive HEENT: Normocephalic, atraumatic. External ears without defect. Pupils equal, round, and reactive to light and accommodation. Anicteric sclerae, moist conjunctivae, and no lid lag. Oropharynx free of erythema and cobble stoning with moist mucosa. Neck: Supple with full range of motion. No jugular venous distension. No bruits. No lymphadenopathy or thyromegaly. Cardiovascular: Sinus bradycardia with no murmurs, rubs, or gallops appreciated Pulmonary: Clear to auscultation bilaterally with no crackles, wheezes, or rhonchi. Normal respiratory effort with no use of accessory muscles. Abdomen: Bowel tones present. Soft, nontender, nondistended. No hepatosplenomegaly or masses appreciated. Extremities: No clubbing, cyanosis, edema, or lymphadenopathy appreciated. Skin: Normal temperature, turgor, and texture; no rash, ulcers, or subcutaneous nodules appreciated. Neurological: Cranial nerves grossly intact. Normal muscle strength, tone, and bulk. Reflexes, coordination, and sensory function within normal limits. No known gait impairment. Psychiatric: Pleasant and interactive, but oriented only to self. IVs and Medications Medications Reviewed: Medications were reviewed in detail Lab and Diagnostics Result Diagram: 05/06/17 1016 05/06/17 0334 Microbiology Blood, sputum, urine cultures ordered. X-Rays, CTs and MRIs X-RAY CHEST ONE VIEW, PORTABLE IMPRESSION: No acute cardiopulmonary disease process. Dictated by: Arlyn Malone MD, PhD on 05/04/2017 at 8:43 Approved by: Arlyn Malone MD, PhD on 05/04/2017 at 8:43 Cardiac Echo Impressions Echocardiogram Interpretation Summary Left ventricular systolic function is mildly reduced with the ejection fraction visually estimated to be 45-50% with borderline global hypokinesis that is worse in the inferior and posterior segments which are severely hypokinentc, which is new compared to the previous study. Compared to the prior exam, left ventricular function has slightly decreased. There is mild concentric left ventricular hypertrophy with diastolic parameters suggesting a pseudonormalization pattern, consistent with elevated filling pressures, but likely unchanged compared to the previous study. The right ventricle is normal in size and function, and appears unchanged compared to the previous study. The right ventricular systolic pressure is estimated at least 54 mmHg assuming a right atrial pressure of 8 mm Hg, and is likely slightly higher compared to the previous study. The left atrium is severely dilated and has mildly increased in size since the prior echo exam. Right atrial size is normal and has significantly decreased in size since the prior echo exam. There is mild mitral regurgitation and mild to moderate tricuspid regurgitation that are unchanged compared to the previous study. There is no other significant valvular heart disease. The ascending aorta is at the upper limits of normal in size. The patient was in normal sinus rhythm with a probable bundle branch block rhythm with heart rates between 60-65 bpm during the study which is considerably faster compared to the previous study. Reading Physician:12:42 PM Assessment & Plan 72 -year-old female with history of dementia, hyperlipidemia, HTN, diabetes, CAD , and CVA presents to the ED via EMS due to chest pain onset last evening. Acute blood loss anemia secondary to duodenal ulcer bleed, present on arrival, active - Rectal exam at admission showing stool in the vault, nonbloody. Less likely lower GI bleed - Upper scope completed by Dr. Toth on 05/04 shows multiple duodenal ulcers, with no active bleeding - Patient transfused 4 units PRBCs - Post transfusion H&H 11.0, her hemoglobin remained stable in the 11s post transfusion and EGD which noted no active bleeding from the duodenal ulcers - Trend H&H overnight, repeat transfusion if less than 8.0 - Continue to monitor closely - Continue oral Protonix 20 mg twice a day - Clear liquid diet - GI to consider rescoping in [address] elevation MN with known history of chronic coronary artery disease, present on arrival, active - Likely due to type 2 injury from hypoperfusion secondary to anemia, possibly in combination with coronary defect. - Troponins trended up to 5.8 to until decreasing down to 5.49 - EKG meets sgarbossa criteria for inferior infarct, possible PDA lesion - Echo ejection fraction 45-50% other results as above - Cardiology consulted, catheter not suggested due to acute bleed in conjunction with ANGY recommendations to institute low-dose beta blockade, PURA inhibitor and statin therapy to be initiated once liver function, kidney function, and blood pressure allow Acute hypotension, present on arrival, stable - Likely secondary to blood loss anemia above - Blood pressure on arrival 86/42 - Patient was given 2 L of fluid in the ED as well as 4 units PRBCs - Cheetah monitoring implemented. Cardiac output increased to 6 L/m in response to 2 L normal saline throughout the day. - Diastolic pressure and systemic vascular resistance index remained low, raising suspicion of occult infection. Blood, urine, and sputum cultures ordered. - Continue to monitor Q4 Acute hypoxic respiratory distress, present on arrival, stable - Patient is not on oxygen at home - Currently Requiring 2 L nasal cannula - DuoNeb scheduled only for increasing oxygen needs due to recent MN Acute kidney injury, present on arrival, resolved - Creatinine of 2.24 at admission improved to 0.96 today - Likely due to hypoperfusion secondary to anemia - Patient received 2 L normal saline in ED in 2 L today - No known history of kidney disease Acute leukocytosis, present on arrival, active - Likely due to stress reaction secondary to ischemic injury -Cultures ordered as mentioned above to rule out infection - Monitor Acute liver injury, present on admission, active - Likely again due to hypoperfusion due to severe anemia as well as ischemic cardiomyopathy - Monitor Chronic Dementia, present on arrival, active - Partner reports that this is gradually worsening - Patient sees Dr. Struck from neurology - The only labs in [facility] are from 2013 History of Type II diabetes - Glucose on arrival to 280s - Started on medium dose correction - Transition to long-acting as appropriate History of Hypertension - Hold all antihypertensive medications at this time Patient is DNR/DNI per our discussion with her spouse The patient is likely to remain inpatient for the foreseeable future likely for 5 more days at minimum and will likely require a usp facility for rehabilitation have. Disposition: At this time there is a balance between the patient's heart and GI issues. The case was discussed extensively with cardiology (Dr. Shaver) and GI ( Dr Toth). Dr. Toth states that the patient is a GI bleed risk, but states that any heart procedures takes precedence over her GI issues but does recommend that if any procedure is done requiring anticoagulation that she be transferred to a higher level of care center that would be able to manage her if she were to have a GI bleed. At this time cardiology would like to try and optimize her medically first before attempting any procedures. At this time we will try to optimize the patient with a beta ingrid and pura inhibitor. If she fails this therapy then we will need to discuss hospice vs transfer to another facility. GI Prophylaxis: Proton Pump Inhibitor VTE Prophylaxis: Other (contraindicated due to GI bleed) VTE Mechanical Devices: Intermittant Pneumatic CD Resuscitation Status: DNR/DNI:Do Not Resuscitate/Intubate Attending Statement The patient was seen and examined together with Dr. Jones on 05/06/17 and I have added additional information to the note above. Quirino Jones DO May 06, 2017 15:18 Deborah Ca DO May 07, 2017 17:12
--- NOTE | 2017-05-06 15:52 | PCM.PNMED ---
Subjective Date of Service May 06, 2017 Subjective I saw this patient this morning. Patient has no abdominal pain. No blood in the stools or black stools noted. Hemoglobin stable. Exam Vital Signs Vital Sign - Last Date Time Temp Pulse Resp B/P Pulse Ox O2 Delivery O2 Flow Rate FiO2 05/06/17 08:50 Supplement Oxygen 05/06/17 08:50 37.2 58 22 96/46 95 3.00 Intake and Output 05/05/17 05/05/17 05/06/17 Cumulative From/Thru 15:00 23:00 07:00 05/04/17 05:47 - 05/06/17 05:07 Intake Total 933 ml 599 ml 4818 ml Output Total 3 ml 3 ml Balance 930 ml 599 ml 4815 ml Intake Oral 733 ml 480 ml 1523 ml IV Total 200 ml 119 ml 2989 ml Packed Cells 306 ml Output Urine Total 3 ml 3 ml # Voids 3 3 12 # Bowel Movements 0 0 Exam Patient is alert and follows commands. Head and neck no icterus Lungs clear Cardiovascular regular rate and rhythm normal S1 and S2 Abdomen soft nontender nondistended with normoactive bowel sounds Extremities no pedal edema of the ankles Skin shows no jaundice. Lab and Diagnostics Result Diagram: 05/06/17 1016 05/06/17 0334 X-Rays, CTs and MRIs X-RAY CHEST ONE VIEW, PORTABLE IMPRESSION: No acute cardiopulmonary disease process. Dictated by: Arlyn Malone MD, PhD on 05/04/2017 at 8:43 Approved by: Arlyn Malone MD, PhD on 05/04/2017 at 8:43 Cardiac Echo Impressions Echocardiogram Interpretation Summary Left ventricular systolic function is mildly reduced with the ejection fraction visually estimated to be 45-50% with borderline global hypokinesis that is worse in the inferior and posterior segments which are severely hypokinentc, which is new compared to the previous study. Compared to the prior exam, left ventricular function has slightly decreased. There is mild concentric left ventricular hypertrophy with diastolic parameters suggesting a pseudonormalization pattern, consistent with elevated filling pressures, but likely unchanged compared to the previous study. The right ventricle is normal in size and function, and appears unchanged compared to the previous study. The right ventricular systolic pressure is estimated at least 54 mmHg assuming a right atrial pressure of 8 mm Hg, and is likely slightly higher compared to the previous study. The left atrium is severely dilated and has mildly increased in size since the prior echo exam. Right atrial size is normal and has significantly decreased in size since the prior echo exam. There is mild mitral regurgitation and mild to moderate tricuspid regurgitation that are unchanged compared to the previous study. There is no other significant valvular heart disease. The ascending aorta is at the upper limits of normal in size. The patient was in normal sinus rhythm with a probable bundle branch block rhythm with heart rates between 60-65 bpm during the study which is considerably faster compared to the previous study. Reading Physician:12:42 PM Assessment & Plan 72 -year-old female with history of dementia, hyperlipidemia, HTN, diabetes, CAD , and CVA presents to the ED via EMS due to chest pain with EKG changes. Again she is a poor historian. However mental status is better this morning. I did a rectal exam was nonbloody on Saturday It was not melanotic. EGD done Saturday showed ulcers in the duodenum. One of the ulcers had pigmented spot. Please refer to my EGD note for further details of the findings. H&H stable and troponin again bumped yesterday.. No bowel movements noted. Hemoglobin is stable for the past 48 hours 11.5 9.9 and 11.2. The ulcers are being adequately treated with medical therapy. From GI leyva, there is nothing further I can add. IV Protonix drip was given for 48 hours. May switch to oral 40 twice a day. Clear liquid diet was given for 48 hours and advance diet as tolerated. Because patient had some any ulcers in the duodenum, I would like to redo EGD in about 2 months. Would avoid NSAIDs. Aspirin and Plavix will increase her risk of bleeding however cardiac and stroke prevention be higher priority. Coumadin would also increase her likelihood of bleeding as well. But again cardiac and stroke prevention would be a higher priority. At this point, cardiac situation will be higher priority over her GI situation. If cardiac intervention needs to be done with anticoagulation or platelet inhibiting drugs, I recommend that she will need higher level care for her GI situation. GI Prophylaxis: Proton Pump Inhibitor VTE Prophylaxis: Other (contraindicated due to GI bleed) VTE Mechanical Devices: Intermittant Pneumatic CD Resuscitation Status: DNR/DNI:Do Not Resuscitate/Intubate Ryan Toth MD May 06, 2017 15:52
--- NOTE | 2017-05-06 16:51 | NUR ---
cheetah/bolus/palliative/plan pt bradycardic and hypotensive discussed with MD. Lisinopril and metoprolol held this am. Cheetah initiated to determine fluid responsiveness. 1L ns bolus given then NS MIV at 100/hr. Pt's hemodynamic numbers drastically improved after fluid bolus. Dr Barger sees pt and reviews goals of care. No changes at this time to care plan. Plan to continue to medically manage VT.
[2017-05-06 18:15] VITALS: BP 119/47; PULSE 54; RESP 24; O2SAT 100
[2017-05-06] MEDS: Pantoprazole 20 mg ER24 Tablet PO SCH (20:29)
[2017-05-06 20:30] VITALS: BP 124/58; PULSE 63; RESP 20; O2SAT 99
[2017-05-07] VITALS (7 sets, daily range): BP systolic 107–133; BP diastolic 45–63; PULSE 43–68; RESP 18–23; O2SAT 92–98
[2017-05-07 03:21] LABS: BASOPHILS % (AUTO) 0.2 % (0-3); EOSINOPHILS % (AUTO) 4.4 % (0-5); MONOCYTES % (AUTO) 11.8 % (4-12); Mean Corpuscular Hemoglobin 29.6 pg (27.0-35.0); Mean Corpuscular Volume 91.9 fL (81-100); Platelet Count 266 bil/L (150-400)
[2017-05-07 03:38] LABS: INR 1.3 ratio
--- NOTE | 2017-05-07 06:05 | NUR ---
Pt had an uneventful night. Pt continues to be confused/forgetful which is baseline for this pt. Pt does follow commands and answers questions appropriately. Metoprolol was given at bedtime, pt's heartrate was in the 60's at the time. Pt is bradycardic but asymptomatic with it. [place] it was important that pt receive beta ingrid with a risk of some bradycardia for medical management for pt's [place]. Trops are still elevated but are trending down. No changes in tele. [facility] numbers are WNL. Vital signs stable. Will continue to monitor pt closely.
[2017-05-07] MEDS: 0.9% Sodium Chloride 1,000 ML IV SCH ×2 (06:21→16:52)
[2017-05-07] MEDS: Insulin LISPRO 300 Unit/3 mL Inj SUBQ SCH ×4 (08:00→20:51)
[2017-05-07] MEDS: Pantoprazole 20 mg ER24 Tablet PO SCH ×2 (08:08→20:48)
--- NOTE | 2017-05-07 13:22 | PCM.PNMED ---
Subjective Date of Service May 07, 2017 Subjective Patient was seen and examined at bedside. Patient is resting comfortably in bed this morning. Patient states that she is doing well and improving. She does still complain of vague left sided pain which seems to be consistent with left sided rib pain. No acute overnight events. Exam Vital Signs Vital Sign - Last Date Time Temp Pulse Resp B/P Pulse Ox O2 Delivery O2 Flow Rate FiO2 05/07/17 08:00 36.8 45 20 122/50 98 Nasal Cannula 2.00 Intake and Output 05/06/17 05/06/17 05/07/17 Cumulative From/Thru 15:00 23:00 07:00 05/04/17 05:47 - 05/07/17 05:53 Intake Total 2401 ml 1823 ml 9042 ml Output Total 3 ml Balance 2401 ml 1823 ml 9039 ml Intake Oral 700 ml 560 ml 2783 ml IV Total 1701 ml 1263 ml 5953 ml Packed Cells 306 ml Output Urine Total 3 ml # Voids 2 2 16 # Bowel Movements 0 0 Exam General: No acute distress, well-developed, well-nourished, appropriately interactive HEENT: Normocephalic, atraumatic. Neck: Supple with full range of motion. No jugular venous distension. No bruits. No lymphadenopathy or thyromegaly. Cardiovascular: Sinus bradycardia with no murmurs, rubs, or gallops appreciated Pulmonary: Clear to auscultation bilaterally with no crackles, wheezes, or rhonchi. Normal respiratory effort with no use of accessory muscles. Abdomen: Bowel tones present. Soft, nontender, nondistended. No hepatosplenomegaly or masses appreciated. Extremities: No clubbing, cyanosis, edema, or lymphadenopathy appreciated. Skin: Normal temperature, turgor, and texture; no rash, ulcers, or subcutaneous nodules appreciated. Neurological: Cranial nerves grossly intact. Normal muscle strength, tone, and bulk. Psychiatric: Demented, but Normal mood and affect. Alert and oriented to person , place, but not time IVs and Medications IV Fluids Normal saline reduced from 100 mL per hour to 10 mL per hour Medications Reviewed: Medications were reviewed in detail Lab and Diagnostics Result Diagram: 05/07/17 0815 05/07/17 0250 Microbiology Blood, sputum, urine cultures ordered. X-Rays, CTs and MRIs X-RAY CHEST ONE VIEW, PORTABLE IMPRESSION: No acute cardiopulmonary disease process. Dictated by: Arlyn Malone MD, PhD on 05/04/2017 at 8:43 Approved by: Arlyn Malone MD, PhD on 05/04/2017 at 8:43 Cardiac Echo Impressions Echocardiogram Interpretation Summary Left ventricular systolic function is mildly reduced with the ejection fraction visually estimated to be 45-50% with borderline global hypokinesis that is worse in the inferior and posterior segments which are severely hypokinentc, which is new compared to the previous study. Compared to the prior exam, left ventricular function has slightly decreased. There is mild concentric left ventricular hypertrophy with diastolic parameters suggesting a pseudonormalization pattern, consistent with elevated filling pressures, but likely unchanged compared to the previous study. The right ventricle is normal in size and function, and appears unchanged compared to the previous study. The right ventricular systolic pressure is estimated at least 54 mmHg assuming a right atrial pressure of 8 mm Hg, and is likely slightly higher compared to the previous study. The left atrium is severely dilated and has mildly increased in size since the prior echo exam. Right atrial size is normal and has significantly decreased in size since the prior echo exam. There is mild mitral regurgitation and mild to moderate tricuspid regurgitation that are unchanged compared to the previous study. There is no other significant valvular heart disease. The ascending aorta is at the upper limits of normal in size. The patient was in normal sinus rhythm with a probable bundle branch block rhythm with heart rates between 60-65 bpm during the study which is considerably faster compared to the previous study. Reading Physician:12:42 PM Additional Diagnostics Cheetah demonstrating cardiac output of 6 L/m Assessment & Plan 72 -year-old female with history of dementia, hyperlipidemia, HTN, diabetes, CAD , and CVA presents to the ED via EMS due to chest pain and was found have ST elevation in her inferior leads, and anemia with a hemoglobin of 6. Acute blood loss anemia secondary to duodenal ulcer bleed, present on arrival, stable - Rectal exam at admission showing stool in the vault, nonbloody. Less likely lower GI bleed - Upper scope completed by Dr. Toth on 05/04 shows multiple duodenal ulcers, with no active bleeding - Patient transfused 4 units PRBCs - Post transfusion H&H 11.0, her hemoglobin remained stable in the 11s post transfusion and EGD which noted no active bleeding from the duodenal ulcers - Trend H&H overnight, repeat transfusion if less than 8.0 - Continue to monitor closely - Continue oral Protonix 20 mg twice a day - Advance diet as tolerated - GI to consider rescoping in [address] elevation IA with known history of chronic coronary artery disease, present on arrival, active - Likely due to type 2 injury from hypoperfusion secondary to anemia, possibly in combination with coronary defect. - Troponins trended up to 5.8 to currently trending down 5.49 - EKG met sgarbossa criteria for inferior infarct, possible PDA lesion - Echo ejection fraction 45-50% - Cardiology consulted, cath not suggested due to acute bleed in conjunction with ANGY recommendations to institute low-dose beta blockade, PURA inhibitor and statin therapy to be initiated once liver function, kidney function, and blood pressure allow - Encourage ambulation with PT - Consider Lexiscan stress test prior to discharge per cardiology recommendations (case discussed with Dr. Shaver of cardiology today) Acute hypotension, present on arrival, stable - Likely secondary to blood loss anemia above - Blood pressure on arrival 86/42 current BP 122/50 - Patient was given 2 L of fluid in the ED as well as 4 units PRBCs - Cheetah monitoring implemented. Cardiac output increased and stable at 6 L/m - Low Diastolic pressure and systemic vascular resistance index raise suspicion of occult infection. Blood, urine, and sputum cultures ordered. - Continue to monitor Q4 Acute hypoxic respiratory distress, present on arrival, stable - Patient is not on oxygen at home - Currently Requiring 2 L nasal cannula - DuoNeb scheduled only for increasing oxygen needs due to recent IA Acute kidney injury, present on arrival, resolved - Creatinine of 2.24 at admission improved to 0.94 today - Likely due to hypoperfusion secondary to anemia - No known history of kidney disease Acute leukocytosis, present on arrival, resolved - Likely due to stress reaction secondary to ischemic injury - Cultures ordered as mentioned above to rule out infection - Monitor Acute liver injury, present on admission, resolved - Likely again due to hypoperfusion due to severe anemia as well as ischemic cardiomyopathy - Monitor Chronic Dementia, present on arrival, active - Partner reports that this is gradually worsening - Patient sees Dr. Saucedo from neurology - The only labs in [facility] are from 2013 from neurology -Palliative involved in goals of care discussions with patient and family History of Type II diabetes - Glucose on arrival to 280s - Continue on medium dose correction - Start lantus 10 units QHS History of Hypertension -Continue metoprolol 12.5 mg by mouth twice a day for medical management of IA -Hold lisinopril for hypotension may restart with 2.5mg QD later today and advance as tolerated but this will depend on the patient's blood pressure Patient is DNR/DNI per our discussion with her spouse The patient is likely to remain inpatient for the foreseeable future likely for 5 more days at minimum and will likely require a nursing home facility for rehabilitation have. GI Prophylaxis: Proton Pump Inhibitor VTE Prophylaxis: Other (contraindicated due to GI bleed) VTE Mechanical Devices: Intermittant Pneumatic CD Resuscitation Status: DNR/DNI:Do Not Resuscitate/Intubate Attending Statement The patient was seen and examined together with Dr. Jones on 05/07/17 and I have added additional information to the note above. Quirino Jones DO May 07, 2017 13:22 Deborah Ca DO May 07, 2017 17:19
--- NOTE | 2017-05-07 14:24 | PCM.PALLBR ---
Palliative Care Recommendation 72-year-old female admitted with chest pain and evidence of STEMI in setting of severe anemia and acute renal insufficiency. Found to have multiple upper GI ulcers on EGD. Given comorbidities, cardiology recommendation thus far has been for medical management. Palliative medicine consulted to assist patient and her family in determination of goals of care Summary of palliative recommendations: -Symptom management (Pain/other)- continues to improve and feeling more comfortable. No significant discomfort. Management per medical/cardiology/GI -DPOA/Advanced Directives/POLST- per patient and family wish, DNR/DNI/Limited interventions. Nancy Boateng is the patient's spouse ([phone]). Today we completed a new POLST that is consistent with her wishes for care- she is to be DNR/DNI/Limited interventions/antibiotics okay/no artificial nutrition. New original POLST as well as copies are given to the patient's spouse Nancy, with additional copies placed in her paper chart and filed in the palliative office. Copy of POA form also filed in palliative office. -Family/emotional support- patient has excellent support from her spouse and spouse's daughter. Additional Medical Diagnoses with primary management by Hospitalist team include : Acute blood loss anemia secondary to duodenal ulcer bleed, present on arrival, active Acute ST elevation HI with known history of chronic coronary artery disease, present on arrival, active Acute hypotension, present on arrival, stable Acute hypoxic respiratory distress, present on arrival, stable Acute kidney injury, present on arrival, active Acute leukocytosis, present on arrival, active Acute liver injury, present on admission, active Chronic Dementia, present on arrival, active History of Type II diabetes History of Hypertension Problems: End of Life Preferences DNR/DNI/Limited interventions/no artificial nutrition/antibiotics okay Goals of Care Recovery and return home Disposition To be determined Resuscitation Status Resuscitation Status: DNR/DNI:Do Not Resuscitate/Intubate POLST Updates/Changes Previous POLST?: Yes POLST Last Review Date: May 07, 2017 (reviewed verbally) Antibiotics: Use ABX if can Prolong Life Artificially Admin Nutrition: No Artifical Nutrition by Tube POLST Discussed with: Patient POLST Review Outcome: New Form Completed . Advanced Care Planning Address: POLST Pain: None Total time 45 minutes; >50% face to face with patient and family, providing counselling regarding plans and recommendations, and in care coordination with her medical teams. Of the above total time, 20 minutes counseling for advanced care planning with the patient and her spouse, assisting them in completion of a new POLST Palliative Brief Note Date of Service May 07, 2017 . Returned to reevaluate patient. Prior to visiting, reviewed her updated records in the EMR. When I arrived, she was sitting up in bed with her spouse Nancy at bedside. Nancy noted that the patient seemed to be doing even better today and was essentially back to baseline in terms of cognition. Patient denied any chest pain, shortness breath, nausea or other distressing symptoms. She said she was looking forward to having physical therapy work with her today. Exam stable. Labs reviewed. Spoke later with Dr. Jones regarding intake/output, IV fluids, etc. I returned later to review her documentation that Nancy had brought from home. Her POLST was completed incorrectly and so we destroyed the old copy and made a new one that accurately reflects their wishes. Also reviewed and made copies of her POA document. Finally, talked about importance of having POLST posted where it could be easily seen (they had previously kept it rolled up in a plastic pill bottle in the refrigerator)- they will hereafter have it posted on the front of the fridge. Wyatt Barger MD May 07, 2017 14:24
--- NOTE | 2017-05-07 14:48 | PROG NOTE ---
[address] [address] PROGRESS NOTE PATIENT: YELENA MARTINS : 1944 MR#: [id number] ADMIT: 05/04/2017 JOB ID: [id number] CARDIOLOGY CONSULTATION PROGRESS NOTE--INPATIENT FOLLOW-UP VISIT: CONSULTING PHYSICIAN: Endy Shaver MD DATE OF EVALUATION: Sunday, May 07, 2017. PROBLEM LIST: 1. Acute Coronary Syndrome(ACS): Clinical diagnosis of acute inferior myocardial infarction. Treatment restricted to limited medical therapy because of comorbidity of severe gastrointestinal bleed. 2. Upper gastrointestinal bleed: a. Multiple duodenal ulcers. b. Transfusion of 4 units of blood. 3. Dementia (moderately severe): a. Dementia; disability; and palliative care issues now at the forefront of her care. HOSPITAL COURSE AND INTERIM PROGRESS: Hospital Day Four. I am glad to see this 72-year-old woman along with her and other family members on Cardiology rounds on Saturday, May 06, 2017; and today Sunday, May 07, 2017. In summary, she presented four days ago with chest pain and ECG suggestive of inferior myocardial infarction despite confounding features of chronic LBBB. laboratory chemist was activated for anticipated primary PCI. However, she was immediately found to have hemoglobin 6 and severe GI bleed requiring 4 units transfusion plus a liter of crystalloid to stabilize hypotension with SBP 78 on presentation. Early upper endoscopy revealed multiple duodenal ulcers without ongoing active bleeding. She has been treated in the interim with IV Protonix. From a cardiac point of view she has she has been stable and had a largely favorable course given the restricted treatment that was possible in the setting of the comorbidity of her GI bleed. Specifically, she has had no further significant chest discomfort (though her dementia has made understanding of any subtle symptoms challenging). Echocardiogram shows inferior akinesis consistent with the clinical impression of inferior IA; but, favorably, global EF is only mildly diminished--45% to 50%. She has been bradycardic but no other severe arrhythmia currently reported. Treatment has been limited to medical therapy; in fact, aspirin has been felt contraindicated and withheld so far, as well as Plavix and heparin not used, and even metoprolol possible only intermittently given sinus bradycardia. She is on statin. Additionally her GI status has remained stable fortunately. Her hospital course now focuses on her apparent substantial(at least moderate) dementia. She has not been able to be out of bed yet. Palliative Care consultation was accomplished yesterday and further consideration along these lines is pending. OBJECTIVE: EXAM: She is comfortable supine in bed. Vital signs are stable; with pulse 45-60 and blood pressure 122/50. Her dementia is apparent. LABORATORIES: Satisfactory with a creatinine 0.94 after presenting with creatinine 2.25. She remains with low CO2 of 16. ASSESSMENT: I discussed the findings, impressions, and management considerations from a Cardiology point of view with her and her family members yesterday and today, as well as with the primary hospitalist team (Dr. Jones; and Dr. Ca) includin. ACS with inferior myocardial infarction: From a cardiac point of view, she appears stable clinically, without overt ischemic, congestive, or arrhythmic problems. The echocardiogram shows only mildly diminished global LV function and this is clearly favorable in the setting of myocardial infarction. At the present time plan medical therapy, acknowledging that even optimal medical therapy is limited by her risk of recurrent bleeding. Note ongoing evaluation of the current primary issues regarding her dementia, palliative care, and planning for ongoing care. RECOMMENDATIONS: 1. Reambulation as possible per your plan including physical therapy is to see her today. 2. Ongoing palliative care evaluation and planning. 3. OMT: Ongoing reassessment of opportunities to up-titrate her medical anti-anginal, anti-CAD regimen if possible. 4. Please re-consult Cardiology during her hospital course and prior to her discharge to consider Lexiscan myocardial perfusion scan for risk stratification, even though it is doubtful that she would be a candidate for catheterization, or definitive therapy. 5. Ongoing cardiology reassessment depending on her subsequent course. 6. From a Cardiology point of view any consideration of definitive therapy with catheterization and consideration of PCI with stents would first require GI follow-up indicating that her bleeding risk would allow her to be a candidate for critically important mandatory dual antiplatelet therapy, with permanent aspirin, and Plavix for at least one month for a bare metal stent. I understand followup EGD is planned in several months, but the clinical impression is that she is not likely to be a candidate for definitive therapy; and more agressive approach may not be needed if she remains stable with completed infarct. [facility]
[2017-05-07] MEDS: levETIRAcetam 500 mg Tablet PO SCH ×2 (15:59→20:48)
--- NOTE | 2017-05-07 17:37 | NUR ---
Disoriented, conversation fairly appropriate but has some word search/salad type problems at times. Denies chest pain, no dyspnea or SOB, room air saturations 92-95%. Diet texture increased to soft with pt maximo well, no evidence swallowing difficulty. No stool today, no observed s/s bleeding. Reported LUQ abdominal discomfort this morning but does not appear to be constant and resolves without intervention. SB/SR, heart rate 45-60's. Metoprolol 12.5mg given with heart rate dropping to 38 at times. Not sustained, asymptomatic. PT eval today. OOB to chair with FWW and 1-2 person assist. Weak but does fairly well with cues, appears unable to problem solve or plan steps for mobilization or transfer independently. Incontinent of urine, wears brief. Plan transfer to [facility] telemetry status. Questions answered for S.O., care explained as given.
[2017-05-07] MEDS: Insulin GLARgine 100 Unit/mL Syringe SUBQ SCH (20:51)
--- NOTE | 2017-05-07 23:30 | NUR ---
Assumed care of pt at 2330
[2017-05-08] VITALS (8 sets, daily range): BP systolic 126–149; BP diastolic 54–84; PULSE 51–65; RESP 18–22; O2SAT 93–98
[2017-05-08 03:27] LABS: BASOPHILS % (AUTO) 0.2 % (0-3); EOSINOPHILS % (AUTO) 3.9 % (0-5); MONOCYTES % (AUTO) 12.9 % (4-12); Mean Corpuscular Hemoglobin 30.1 pg (27.0-35.0); Mean Corpuscular Volume 91.4 fL (81-100); NEUTROPHILS % (AUTO) 68.4 % (40-74); Platelet Count 309 bil/L (150-400)
[2017-05-08 03:44] LABS: INR 1.21 ratio
--- NOTE | 2017-05-08 06:02 | NUR ---
Uneventful night Pt continues with HR in 50s-asymptomatic with baseline confusion. Pt last recorded BM 05/02 and she refused senna at this time. "I have been going and I do not need that." EMR does not reflect BM other than 05/02. Abd soft non tender and denies pain. NC 2L Spo2 high 90s. Q2h turns for comfort. Care continues.
--- NOTE | 2017-05-08 07:35 | PATH ---
SURGICAL PATHOLOGY Attending Physician:Ryan Toth M.D. CASE STATUS: Signed Out PATIENT NAME: YELENA MARTINS PID: [id number] : 1945 DATE COLLECTED:05/04/2017 00:00 SPECIMEN: Esophageal Brushing CLINICAL HISTORY: Esophageal Brushing ICD-10 code not given FINAL DIAGNOSIS: Esophagus, Brushing: Positive for yeast and pseudohyphae, consistent with Mari species. Negative for malignant cells. ICD10: B37.81 GROSS DESCRIPTION: Received fresh on 05/07/2017 is approximately 0.1 cc of clear colorless fluid with one brush. Prepared is one ThinPrep slide. Vo ICD-9 CODES: CPT CODES: 1: 89261 Electronically Signed Out Michelle Lowry MD [facility] Pathology [facility] [address], [place] [address] Technical component performed at [facility], [facility] [address], [place], [address]
[2017-05-08] MEDS: Pantoprazole 20 mg ER24 Tablet PO SCH ×2 (09:01→20:39)
[2017-05-08] MEDS: levETIRAcetam 500 mg Tablet PO SCH ×2 (09:02→20:39)
[2017-05-08] MEDS: Insulin LISPRO 300 Unit/3 mL Inj SUBQ SCH ×4 (09:03→20:40)
--- NOTE | 2017-05-08 10:20 | PCM.PNMED ---
Subjective Date of Service May 08, 2017 Subjective Patient was seen and examined. She appeared comfortable and was about to eat breakfast. Nursing states that while the patient was sleeping overnight, her O2 sats dropped into the 70s, and was placed on nasal cannula to which she responded responded appropriately. Of note today, patient suffered an unwitnessed ground-level fall later in the day. She says that she was attempting to transfer from her bed to her chair and forgot to call the nurse for help. The nurses heard her fall and came to help her up into the chair. She says that she felt slightly dizzy prior to the fall, and complained of nausea afterwards. She complains of pain over her left parietal area. She denies any visual changes. Review of her telemetry strip around the time that she fell revealed a normal sinus rhythm in the 50s. Patient was sent for head CT and left femur x-ray. Exam Vital Signs Vital Sign - Last Date Time Temp Pulse Resp B/P Pulse Ox O2 Delivery O2 Flow Rate FiO2 05/08/17 07:34 37.1 58 20 130/84 97 Nasal Cannula 2.00 Intake and Output 05/07/17 05/07/17 05/08/17 Cumulative From/Thru 15:00 23:00 07:00 05/04/17 05:47 - 05/08/17 04:06 Intake Total 2257 ml 250 ml 64833 ml Output Total 3 ml Balance 2257 ml 250 ml 85069 ml Intake Oral 1140 ml 250 ml 4173 ml IV Total 1117 ml 7070 ml Packed Cells 306 ml Output Urine Total 3 ml # Voids 2 5 23 # Bowel Movements 0 0 0 Exam General: No acute distress, well-developed, well-nourished, appropriately interactive HEENT: Normocephalic, atraumatic. External ears without defect. Pupils equal, round, and reactive to light and accommodation. Ani Neck: Supple with full range of motion. No jugular venous distension. No bruits. No lymphadenopathy or thyromegaly. Cardiovascular: Regular rate and rhythm with no murmurs, rubs, or gallops appreciated Pulmonary: Clear to auscultation bilaterally with no crackles, wheezes, or rhonchi. Normal respiratory effort with no use of accessory muscles. Abdomen: Bowel tones present. Soft, nontender, nondistended. No hepatosplenomegaly or masses appreciated. Extremities: No clubbing, cyanosis, edema, or lymphadenopathy appreciated. Skin: Normal temperature, turgor, and texture; no rash, ulcers, or subcutaneous nodules appreciated. Neurological: Cranial nerves grossly intact. Normal muscle strength, tone, and bulk. Psychiatric: Alert but oriented only to person. An additional skeletal examination was performed immediately after her ground- level fall at 1630 05/08/2017 -Tenderness to palpation of left parietal area without erythema, laceration, or swelling -Palpation of the mid left humerus elicited pain, but no crepitus or tissue changes were noted. -Inspection and palpation of the rest of the skull, cervical spine, upper extremities, clavicles, pelvic girdle, proximal femur, lower legs revealed no tenderness, excoriations, ecchymosis, or edema. -Negative log roll bilaterally, AIN, PIN, Radius and ulnar nerve grossly intact IVs and Medications Medications Reviewed: Medications were reviewed in detail Lab and Diagnostics Result Diagram: 05/08/1731505/08/17315 Microbiology Blood, sputum, urine cultures ordered. X-Rays, CTs and MRIs X-RAY CHEST ONE VIEW, PORTABLE IMPRESSION: No acute cardiopulmonary disease process. Dictated by: Arlyn Malone MD, PhD on 05/04/2017 at 8:43 Approved by: Arlyn Malone MD, PhD on 05/04/2017 at 8:43 Cardiac Echo Impressions Echocardiogram Interpretation Summary Left ventricular systolic function is mildly reduced with the ejection fraction visually estimated to be 45-50% with borderline global hypokinesis that is worse in the inferior and posterior segments which are severely hypokinentc, which is new compared to the previous study. Compared to the prior exam, left ventricular function has slightly decreased. There is mild concentric left ventricular hypertrophy with diastolic parameters suggesting a pseudonormalization pattern, consistent with elevated filling pressures, but likely unchanged compared to the previous study. The right ventricle is normal in size and function, and appears unchanged compared to the previous study. The right ventricular systolic pressure is estimated at least 54 mmHg assuming a right atrial pressure of 8 mm Hg, and is likely slightly higher compared to the previous study. The left atrium is severely dilated and has mildly increased in size since the prior echo exam. Right atrial size is normal and has significantly decreased in size since the prior echo exam. There is mild mitral regurgitation and mild to moderate tricuspid regurgitation that are unchanged compared to the previous study. There is no other significant valvular heart disease. The ascending aorta is at the upper limits of normal in size. The patient was in normal sinus rhythm with a probable bundle branch block rhythm with heart rates between 60-65 bpm during the study which is considerably faster compared to the previous study. Reading Physician:12:42 PM Additional Diagnostics Cheetah demonstrating cardiac output of 6 L/m Assessment & Plan 72 -year-old female with history of dementia, hyperlipidemia, HTN, diabetes, CAD , and CVA presents to the ED via EMS due to chest pain and was found have ST elevation in her inferior leads, and anemia with a hemoglobin of 6. Acute blood loss anemia secondary to duodenal ulcer bleed, present on arrival, stable - Rectal exam at admission showing stool in the vault, nonbloody. Less likely lower GI bleed - Upper scope completed by Dr. Toth on 05/04 showed multiple duodenal ulcers, with no active bleeding - Patient transfused 4 units PRBCs - Post transfusion H&H 11.0, her hemoglobin remained stable in the 11s post transfusion and EGD which noted no active bleeding from the duodenal ulcers - Trend H&H overnight, repeat transfusion if less than 8.0 - Continue to monitor closely - Continue oral Protonix 20 mg twice a day - GI to consider rescoping in 2 months - Avoid antiplatelet/anticoagulant medications Acute ST elevation VA with known history of chronic coronary artery disease, present on arrival, stable - Likely due to type 2 injury from hypoperfusion secondary to anemia, possibly in combination with coronary defect. - EKG met sgarbossa criteria for inferior infarct, possible PDA lesion - Echo ejection fraction 45-50% - Cardiology consulted, cath not suggested due to acute bleed in conjunction with ANGY recommendations to institute low-dose beta blockade, PURA inhibitor and statin therapy to be initiated once liver function, kidney function, and blood pressure allow - Encourage ambulation with PT - Consider Lexiscan stress test prior to discharge per cardiology recommendations (case discussed with Dr. Shaver of cardiology 05/07/2017) Fall from chair to floor - CT head negative for intracranial processes - X-ray of L femur negative for fracture (images reviewed) - No current signs of injury, patient is doing well and was able to ambulate back to bed without any problems - Continue to monitor Acute hypotension, present on arrival, stable - Likely secondary to blood loss anemia above - Blood pressure on arrival 86/42 current BP 126/66 - Patient was given 2 L of fluid in the ED as well as 4 units PRBCs - Low Diastolic pressure and systemic vascular resistance index raise suspicion of occult infection. Blood, urine, and MRSA cultures ordered and found to be negative. - Continue to monitor Q4 Acute respiratory failure with hypoxemia, present on admission, ongoing - Patient is not on oxygen at home - Currently Requiring 2 L nasal cannula - DuoNeb scheduled only for increasing oxygen needs due to recent VA -We will attempt to obtain a blood gas if the patient desaturates while she is sleeping as she did last night Acute kidney injury, present on arrival, resolved - Creatinine of 2.24 at admission improved to 0.84 today - Likely due to hypoperfusion secondary to anemia - No known history of kidney disease Acute leukocytosis, present on arrival, resolved - Likely due to stress reaction secondary to ischemic injury - Cultures ordered as mentioned above to rule out infection - Monitor Acute liver injury, present on admission, resolved - Likely again due to hypoperfusion due to severe anemia as well as ischemic cardiomyopathy - Monitor Chronic Dementia, present on arrival, active - Partner reports that this is gradually worsening - Patient sees Dr. Saucedo from neurology - The only labs in [facility] are from 2013 from neurology - Palliative involved in goals of care discussions with patient and family History of Type II diabetes - Glucose on arrival to 280s - Continue on medium dose correction - Continue 10 units QHS History of Hypertension -Continue metoprolol 12.5 mg by mouth twice a day for medical management of VA -Continue lisinopril 2.5 mg daily as patient's blood pressure tolerates for medical management of VA Patient is DNR/DNI per our discussion with her spouse Patient will likely discharge within 1-2 days to a [facility] facility, though today's ground-level fall may complicate this. GI Prophylaxis: Proton Pump Inhibitor VTE Prophylaxis: Other (contraindicated due to GI bleed) VTE Mechanical Devices: Intermittant Pneumatic CD Resuscitation Status: DNR/DNI:Do Not Resuscitate/Intubate Attending Statement The patient was seen and examined together with Dr. Jones on 05/08/17 and I have added additional information to the note above. Quirino Jones DO May 08, 2017 10:20 Deborah Ca DO May 09, 2017 11:59
--- NOTE | 2017-05-08 11:48 | PCM.PALLBR ---
Palliative Care Recommendation 72-year-old female admitted with chest pain and evidence of STEMI in setting of severe anemia and acute renal insufficiency. Found to have multiple upper GI ulcers on EGD. Given comorbidities, cardiology recommendation has been for medical management. Palliative medicine consulted to assist patient and her family in determination of goals of care As patient is improving, and goals of care, documentation, etc. are well defined , palliative medicine will sign off at this time. Please contact us if we may be of further assistance. Summary of palliative recommendations: -Symptom management (Pain/other)- continues to improve and feeling more comfortable. No significant discomfort. Management per medical/cardiology/GI -DPOA/Advanced Directives/POLST- per patient and family wish, DNR/DNI/Limited interventions. Nancy Boateng is the patient's spouse ([phone]). On 05/07 we completed a new POLST that is consistent with her wishes for care- she is to be DNR/DNI/Limited interventions/antibiotics okay/no artificial nutrition. New original POLST as well as copies are given to the patient's spouse Nancy, with additional copies placed in her paper chart and filed in the palliative office. Copy of POA form also filed in palliative office. -Family/emotional support- patient has excellent support from her spouse and spouse's daughter. Additional Medical Diagnoses with primary management by Hospitalist team include : Acute blood loss anemia secondary to duodenal ulcer bleed, present on arrival, active Acute ST elevation [place] with known history of chronic coronary artery disease, present on arrival, active Acute hypotension, present on arrival, stable Acute hypoxic respiratory distress, present on arrival, stable Acute kidney injury, present on arrival, active Acute leukocytosis, present on arrival, active Acute liver injury, present on admission, active Chronic Dementia, present on arrival, active History of Type II diabetes History of Hypertension Problems: End of Life Preferences DNR/DNI/Limited interventions/no artificial nutrition/antibiotics okay Goals of Care Recovery and return home eventually, though with interval SNF stay for strengthening Disposition Probable SNF Resuscitation Status Resuscitation Status: DNR/DNI:Do Not Resuscitate/Intubate POLST Updates/Changes Previous POLST?: Yes POLST Last Review Date: May 07, 2017 (reviewed verbally) Antibiotics: Use ABX if can Prolong Life Artificially Admin Nutrition: No Artifical Nutrition by Tube POLST Discussed with: Patient POLST Review Outcome: New Form Completed Total time 30 minutes; >50% face to face with patient and family, providing counselling regarding plans and recommendations, and in care coordination with her medical teams. copies to: Sandra Canas PA-C Palliative Brief Note Date of Service May 08, 2017 . Returned to reevaluate patient. Prior to visiting, reviewed her updated records in the EMR in detail and spoke with her bedside nurse and hospitalist. Nurse noted some persistent/recurrent nocturnal hypoxemia with hospitalist plans to monitor tonight and likely prescribe supplemental O2 at time of discharge. When I arrived, she sitting up in bed speaking with her spouse's daughter Radhika. She says she continues to improve- has had some mild musculoskeletal left-sided chest and abdominal wall discomfort, but no significant dyspnea central chest pain or heaviness, nausea or other. Admits that she still very weak and that she is agreeable to going to an SNF for rehabilitation. Physical exam remains stable. Wyatt Barger MD May 08, 2017 11:47
--- NOTE | 2017-05-08 14:17 | NUR ---
per WATER MAINTENANCE SUPERVISOR request faxed clinicals to [facility].
--- NOTE | 2017-05-08 15:30 | NUR ---
Social Work: Continued Discharge Planning/Multidisciplinary Rounds D: Patient discussed in multidisciplinary rounds, the patient is not medically stable for discharge home and will likely require skilled rehab at time of discharge. PT notes reflect that patient only ambulated 2 feet and are recommending SNF. CM order placed to coordinate and evaluate for SNF placement. ELEVATOR INSPECTOR acknowledges order. ELEVATOR INSPECTOR has confirmed with patient's daughter John that their preference for SNF remains with [facility]. She confirms that this is their preference as both the patient and her live in [place]. ELEVATOR INSPECTOR has requested Air Carrier Inspector fax referral and clinicals to [facility] for review. Patient is straight medicare and has been admitted for 4 midnights. PPW on chart. PASSR complete and in folder. A: Patient who will require skilled rehab at time of discharge P: Anticipate patient to discharge to Skilled rehab at time of d/c; [facility] has been referred and is reviewing. ELEVATOR INSPECTOR to continue to follow to assess for unmet discharge needs. SRINATH Tolliver
--- NOTE | 2017-05-08 17:19 | DRSVH ---
PROCEDURE: CT BRAIN WITHOUT CONTRAST ([id number]) INDICATIONS: ground-level fall with head pain TECHNIQUE: Noncontrast 4.5 mm thick angled axial sections acquired from the foramen magnum to the vertex, with c oronal reformats. COMPARISON: [facility], CT, CT BRAIN WO CON, 05/05/2017, 11:45. FINDINGS: Image quality: Excellent. CSF spaces: Basal cisterns are patent. No extra-axial fluid collections. The ventricles are symmet vahid in size and shape. Brain: No intracranial bleeds or masses. There is cerebral volume loss for age, with resultant vent ricular and sulcal prominence. There are periventricular and deep white matter chronic small vessel ischemic changes. There is intracranial internal carotid artery atherosclerosis. Skull and face: Calvarium and visualized facial bones appear intact, without suspicious lesions. Sinuses: Visualized sinuses and mastoids are clear. IMPRESSION: No acute intracranial process. Dictated by: Renato Peacock M.D. on 05/08/2017 at 17:17 Approved by: Renato Peacock M.D. on 05/08/2017 at 17:17
--- NOTE | 2017-05-08 17:55 | DRSVH ---
PROCEDURE: X-RAY LEFT FEMUR, TWO VIEWS ([id number]) INDICATIONS: ground-level fall TECHNIQUE: 2 views of the femur were acquired. COMPARISON: None. FINDINGS: Bones: No fractures or dislocations. No suspicious bony lesions. Knee arthroplasty has been perfor med. Soft tissues: No suspicious soft tissue calcifications or masses. IMPRESSION: No acute fracture. No osseous lesion. If clinical suspicion and/or symptoms persist, fur ther assessment with repeat plainfilms, or advanced imaging (e.g., CT, MRI, or bone scan) may be help ful for further assessment. Dictated by: Renato Peacock M.D. on 05/08/2017 at 17:53 Approved by: Renato Peacock M.D. on 05/08/2017 at 17:53
--- NOTE | 2017-05-08 18:14 | NUR ---
mental status/ambulation/plan Pt alert to self and recognizes family. Conversive but confused and forgetfull. Pt ambulated with PT approx 65 feet and tolerated well with Fww. Plan to dc to snf tomorrow
--- NOTE | 2017-05-08 19:00 | PCM.PROC ---
Procedure Note Date of Service: May 08, 2017 Provider and Carpet Sewing Machine Operator: Dr. Jones Procedure Details: Procedure: Osteopathic Manipulative Treatment Subjective: Patient is a 72-year-old female who is currently here for IN patient has been complaining of left-sided chest pain however does not seem to be consistent with any type of cardiac pain. Upon palpation it was noted that the patient had a left inhaled rib 6. Risks and benefits of OMT were explained to the patient and verbal consent obtained. Osteopathic Structural Exam: Ribs: Left inhaled rib 6 Patient responded well to treatment. Patient stated after treatment that her rib pain felt better. The patient was reassessed on the following day and it was noted that the patient no longer had any left-sided pain in the rib area. Osteopathic treatment modalities used: BLT,and soft tissue technique Deborah Ca DO May 08, 2017 19:00
[2017-05-08] MEDS: Insulin GLARgine 100 Unit/mL Syringe SUBQ SCH (20:40)
[2017-05-09] VITALS: PULSE 58; RESP 18; O2SAT 94
[2017-05-09 03:57] VITALS: BP 143/63; PULSE 55; RESP 24; O2SAT 93
[2017-05-09 04:16] LABS: BASOPHILS % (AUTO) 0.2 % (0-3); EOSINOPHILS % (AUTO) 4.6 % (0-5); MONOCYTES % (AUTO) 12.4 % (4-12); Mean Corpuscular Hemoglobin 29.7 pg (27.0-35.0); Mean Corpuscular Volume 90.9 fL (81-100); NEUTROPHILS % (AUTO) 65.1 % (40-74); Platelet Count 318 bil/L (150-400)
[2017-05-09 04:18] LABS: INR 1.01 ratio
--- NOTE | 2017-05-09 04:29 | NUR ---
Respiratory Pt on RA throughout. She tolerated well. SPO2 91-94%. No apnea noted. Pt remains confused. No getting OOB without assistance noted. No overt complications noted.
[2017-05-09 05:50] VITALS: PULSE 55
[2017-05-09] MEDS: 0.9% Sodium Chloride 1,000 ML IV SCH (06:05)
[2017-05-09 07:55] VITALS: PULSE 62
[2017-05-09 08:00] VITALS: BP 134/61; PULSE 48; RESP 23; O2SAT 92
[2017-05-09] MEDS: Insulin LISPRO 300 Unit/3 mL Inj SUBQ SCH ×2 (09:10→12:00)
[2017-05-09] MEDS: levETIRAcetam 500 mg Tablet PO SCH (09:10)
[2017-05-09] MEDS: Pantoprazole 20 mg ER24 Tablet PO SCH (09:11)
--- NOTE | 2017-05-09 09:33 | PCM.DIMED ---
Quirino Jones DO 05/09/17 0933: Discharge Instructions Date of Service May 09, 2017 Dates of Hospitalization May 04, 2017 at 07:58 Discharge Diagnosis Discharge Diagnosis Acute ST elevation [place] Bleeding gastric and duodenal ulcers Hypotension Acute respiratory failure with hypoxemia Acute kidney injury Leukocytosis Acute liver injury Chronic dementia Type 2 diabetes mellitus Medication Instructions Additional med instructions We are sending you with some medications to keep your heart healthy after your heart attack. These include lisinopril, metoprolol, and atorvastatin. Please continue to take these as prescribed. You can resume your regularly prescribed home medications, though do not take aspirin or Coumadin as this may increase your risk of bleeding. Test Results Test Results Your upper endoscopy with the gastrointestinal doctor showed that you had some ulcers in your stomach and small intestine that were bleeding. Your heart ultrasound, EKG and labs showed that you suffered a heart attack. The CT scan and x-ray of your left leg did not show any injuries as a result of your fall on 05/08/17. Diet Discharge Diet: Heart Healthy, Diabetic Activity Discharge Activity: Other (Your activity level will be guided by your caretakers at the nursing home facility. Continue to work with their physical therapy program) Call your provider Call your provider for: Fever or Chills, Shortness of breath, Bleeding, Vomitting, Excessive diarrhea, Weakness (unilateral) Patient Instructions Patient Instructions You will be heading to a nursing home facility to get stronger in anticipation of returning to your home. Follow up with your primary care physician in 1 to 2 weeks. The GI doctors would like to take another look at your ulcers to make sure they're healing in 2 months. Continue to take your medications as prescribed. You have been through a lot, work with the physical therapy program at the nursing facility to get stronger. Follow-up with PCP in: 1 week Provider: Moi Loo MD, Precious L DO 05/09/17 1353: Discharge Instructions Patient Instructions Patient Instructions It has also been recommended by cardiology that you have a stress test called a Lexiscan to look at your heart. Please follow up with cardiology and have this done as an out patient. Attending's Statement The patient was seen and examined together with Dr. Jones on 05/09/17 and I have added additional information to the note above. Quirino Jones DO May 09, 2017 09:33 Deborah Ca DO May 09, 2017 13:53
[2017-05-09] MEDS ORDERED: PANT20TA2 PO (10:06)
[2017-05-09] MEDS ORDERED: METO25TA6 PO (10:06)
--- NOTE | 2017-05-09 10:13 | PCM.DC.MED ---
Discharge Summary Date of Service May 09, 2017 Dates of Hospitalization Date of Hospital Admission May 04, 2017 at 07:58 Date of Discharge: May 09, 2017 Providers: Admitting Physician: Endy Shaver MD Primary Care Physician: Sandra Canas PA-C Attending Physician: Deborah Ca DO Diagnosis at Time of Discharge Diagnosis at Time of Discharge Acute ST elevation RI Bleeding gastric and duodenal ulcers Hypotension Acute respiratory failure with hypoxemia Acute kidney injury Leukocytosis Acute liver injury Chronic dementia Type 2 diabetes mellitus Consultations Cardiology (Dr. Shaver) GI (Dr. Davis) Palliative care (Dr. Barger) Procedures XRay, CTs & MRIs X-RAY CHEST ONE VIEW, PORTABLE IMPRESSION: No acute cardiopulmonary disease process. Dictated by: Arlyn Malone MD, PhD on 05/04/2017 at 8:43 Approved by: Arlyn Malone MD, PhD on 05/04/2017 at 8:43 Cardiac Echo Impression Echocardiogram Interpretation Summary Left ventricular systolic function is mildly reduced with the ejection fraction visually estimated to be 45-50% with borderline global hypokinesis that is worse in the inferior and posterior segments which are severely hypokinentc, which is new compared to the previous study. Compared to the prior exam, left ventricular function has slightly decreased. There is mild concentric left ventricular hypertrophy with diastolic parameters suggesting a pseudonormalization pattern, consistent with elevated filling pressures, but likely unchanged compared to the previous study. The right ventricle is normal in size and function, and appears unchanged compared to the previous study. The right ventricular systolic pressure is estimated at least 54 mmHg assuming a right atrial pressure of 8 mm Hg, and is likely slightly higher compared to the previous study. The left atrium is severely dilated and has mildly increased in size since the prior echo exam. Right atrial size is normal and has significantly decreased in size since the prior echo exam. There is mild mitral regurgitation and mild to moderate tricuspid regurgitation that are unchanged compared to the previous study. There is no other significant valvular heart disease. The ascending aorta is at the upper limits of normal in size. The patient was in normal sinus rhythm with a probable bundle branch block rhythm with heart rates between 60-65 bpm during the study which is considerably faster compared to the previous study. Reading Physician:12:42 PM Invasive Procedures EGD Impression Multiple ulcers especially in the duodenum. One with pigmented spot. Gastric healing ulcer Erosive gastropathy with superficial ulcer. Other Diagnostics Cheetah demonstrating cardiac output of 6 L/m Brief History 72 -year-old female with history of dementia, hyperlipidemia, HTN, diabetes, CAD , and CVA presents to the ED via EMS due to chest pain and was found have ST elevation in her inferior leads, and anemia with a hemoglobin of 6. Dr. Shaver from cardiology was consulted and declined to perform a cardiac catheter due to the patient's hemodynamic instability and anemia. GI performed a upper endoscopy which revealed bleeding gastric and duodenal ulcers. Patient received 4 units of packed red blood and her H&H stabilized. She was started on Protonix , lisinopril, metoprolol, atorvastatin. Antiplatelet/anticoagulant medications were avoided. Her echo showed an ejection fraction of 50%. Patient remained hemodynamically stable with fluid support, and did not require pressors. It was decided by cardiology due to her GI ulcers that she is not a good candidate for stenting at this time as she is not able to take any aspirin or Plavix for anticoagulation. The patient should not be on any anticoagulation at this time because she is a severe bleed risk. Cardiology decided to manage the patient medically and optimizing her beta ingrid and PUAR inhibitor. The patient has been able to tolerate Toprol 5 mg of metoprolol twice a day however has been difficult to increase this as her heart rates have been in the 50s. The patient's blood pressure has been increasing so we have been able to increase her lisinopril she went from 2.5 mg daily to 5 mg daily. May continue to titrate this up if the patient's blood pressure remains elevated. Patient suffered an unwitnessed ground-level fall on the evening of 05/08/18 while transferring from her bed to her chair without loss of consciousness, and complained of head and left thigh pain. CT scan of the head and femur x-ray did not show any evidence of injury. Hospital Course See below for details hospital course Acute blood loss anemia secondary to duodenal ulcer bleed, present on arrival, stable - Rectal exam at admission showed stool in the vault, nonbloody. Making lower GI bleed less likely. - Upper scope completed by Dr. Toth on 05/04 showed multiple duodenal ulcers, with no active bleeding - Patient transfused 4 units PRBCs - Post transfusion H&H 11.0, her hemoglobin remained stable in the 11s post transfusion and EGD which noted no active bleeding from the duodenal ulcers - Trended H&H overnight, planned to repeat transfusion if less than 8.0 - We continued to monitor closely - Gave oral Protonix 20 mg twice a day - GI to consider rescoping in 2 months - Avoid antiplatelet/anticoagulant medications Acute ST elevation RI with known history of chronic coronary artery disease, present on arrival, stable - Likely due to type 2 injury from hypoperfusion secondary to anemia, possibly in combination with coronary defect. - EKG met sgarbossa criteria for inferior infarct, possible PDA lesion - Echo ejection fraction 45-50% - Cardiology consulted, cath not suggested due to acute bleed in conjunction with ANGY recommendations to institute low-dose beta blockade, PURA inhibitor and statin therapy to be initiated once liver function, kidney function, and blood pressure allow - Holly Fox consulted on day of discharge and she recommends following up with Dr. Kimble in the cardiology clinic after she is discharged from nursing facility to evaluate for possible Lexiscan. In the meantime, she recommends continuing pharmacologic therapy. - Encourage ambulation with PT Acute hypotension, present on arrival, stable - Likely secondary to blood loss anemia above - Blood pressure on arrival 86/42 - Patient was given 2 L of fluid in the ED as well as 4 units PRBCs - Low Diastolic pressure and systemic vascular resistance index raised suspicion of occult infection. Blood, urine, and sputum cultures ordered, returned negative Acute respiratory failure with hypoxemia, present on admission, ongoing - Patient is not on oxygen at home - Currently Requiring 2 L nasal cannula - DuoNeb scheduled only for increasing oxygen needs due to recent RI Acute kidney injury, present on arrival, resolved - Creatinine of 2.24 at admission improved to 0 0.77 on day of discharge - Likely due to hypoperfusion secondary to anemia - No known history of kidney disease Acute leukocytosis, present on arrival, resolved - Likely due to stress reaction secondary to ischemic injury - Cultures ordered as mentioned above to rule out infection Acute liver injury, present on admission, resolved - Likely again due to hypoperfusion due to severe anemia as well as ischemic cardiomyopathy - Monitor Chronic Dementia, present on arrival, active - Partner reports that this is gradually worsening - Patient sees Dr. Saucedo from neurology - The [facility] from 2013 from neurology - Palliative involved in goals of care discussions with patient and family History of Type II diabetes - Glucose on arrival to 280s - Controlled on medium dose correction History of Hypertension -Continue metoprolol 12.5 mg by mouth twice a day for medical management of RI -Continue lisinopril 5 mg daily as patient's blood pressure tolerates for medical management of RI Patient is DNR/DNI per our discussion with her spouse Disposition: Patient is discharging to [facility] for rehabilitation Exam Vital Signs (Last) Date Time Temp Pulse Resp B/P Pulse Ox O2 Delivery O2 Flow Rate FiO2 05/09/17 07:55 62 05/09/17 03:57 36.9 24 143/63 93 Room Air 05/08/17 07:34 2.00 Exam General: No acute distress, well-developed, well-nourished, appropriately interactive HEENT: Normocephalic, atraumatic. External ears without defect. Pupils equal, round, and reactive to light and accommodation. Neck: Supple with full range of motion. No jugular venous distension. No bruits. No lymphadenopathy or thyromegaly. Cardiovascular: Regular rate and rhythm with no murmurs, rubs, or gallops appreciated Pulmonary: Clear to auscultation bilaterally with no crackles, wheezes, or rhonchi. Normal respiratory effort with no use of accessory muscles. Abdomen: Bowel tones present. Soft, nontender, nondistended. No hepatosplenomegaly or masses appreciated. Extremities: Nonpitting edema noted bilaterally in lower extremities Skin: Normal temperature, turgor, and texture; no rash, ulcers, or subcutaneous nodules appreciated. Neurological: Cranial nerves grossly intact. Normal muscle strength, tone, and bulk. Psychiatric: Pleasant and oriented only to person Test 05/04/17 05:50 05/04/17 13:10 05/05/17 03:20 05/06/17 03:34 Hemoglobin A1c 6.5% (4.8-5.6) Hold Garcia Top Tube Received (Received) Prealbumin 32mg/dL (20-40) Total Creatine Kinase 2039U/L (21-215) Creatine Kinase MB 149.0ng/mL (0.0-5.3) Creatine Kinase MB % 7.3% (0.0-5.0) Activated Partial Thromboplast Time 34.5sec (22.8-33.0) Phosphorus Level 3.5mg/dL (2.5-4.9) Magnesium Level 1.9mg/dL (1.6-2.6) Troponin T 5.49ug/L (0.0-0.011) Test 05/09/17 03:30 White Blood Count 9.1th/mm3 (3.8-10.1) Red Blood Count 3.40mil/mm3 (3.90-5.20) Hemoglobin 10.1g/dL (12.0-15.6) Hematocrit 30.9% (35.0-46.0) Mean Corpuscular Volume 90.9fL (81-100) Mean Corpuscular Hemoglobin 29.7pg (27.0-35.0) Mean Corpuscular Hemoglobin Concent 32.7% (32.0-37.0) Red Cell Distribution Width 14.9% (12.3-15.4) Platelet Count 318bil/L (150-400) Neutrophils (%) (Auto) 65.1% (40-74) Lymphocytes (%) (Auto) 17.3% (14-46) Monocytes (%) (Auto) 12.4% (4-12) Eosinophils (%) (Auto) 4.6% (0-5) Basophils (%) (Auto) 0.2% (0-3) Prothrombin Time 10.8sec (8.1-12.5) Prothromb Time International Ratio 1.01ratio Sodium Level 138mEq/L (134-144) Potassium Level 4.0mEq/L (3.5-5.2) Chloride Level 107mEq/L (97-108) Carbon Dioxide Level 20mmol/L (18-29) Blood Urea Nitrogen 14mg/dL (8-27) Creatinine 0.77mg/dL (0.57-1.00) Estimat Glomerular Filtration Rate 105mL/min (>59) Glucose Level 135mg/dL (60-99) Calcium Level 8.1mg/dL (8.5-10.1) Total Bilirubin 0.4mg/dL (0.0-1.2) Aspartate Amino Transf (AST/SGOT) 23U/L (0-50) Alanine Aminotransferase (ALT/SGPT) 18U/L (0-32) Alkaline Phosphatase 105U/L (25-165) Total Protein 5.5g/dL (6.4-8.4) Albumin 2.8g/dL (3.4-5.0) Microbiology Results Blood, sputum, urine cultures ordered, resulted negative. Discharge Medications Discharge Medications Candesartan Cilexetil (Candesartan Cilexetil) 32 Mg Tablet 32 MG PO MORNING ( Reported) Chlorthalidone (Chlorthalidone) 25 Mg Tablet 25 MG PO DAILY (Reported) Cholecalciferol (Vitamin D3) (Vitamin D) 5,000 Unit Capsule 5,000 UNIT PO DAILY (Reported) Citalopram (Citalopram) 40 Mg Tablet 40 MG PO DAILY (Reported) Glimepiride (Glimepiride) 2 Mg Tablet 2 MG PO DAILYAC (Reported) Levetiracetam (Levetiracetam) 750 Mg Tablet 750 MG PO BID (Reported) Levothyroxine (Levothyroxine) 75 Mcg Tablet 75 MCG PO DAILY (Reported) Lovastatin (Lovastatin) 40 Mg Tablet 40 MG PO HS (Reported) Metoprolol Tartrate (Metoprolol Tartrate) 25 Mg Tablet 12.5 MG PO BID Prescribed by: RADHA MERLOS DO Pantoprazole (Pantoprazole DR) 20 Mg Tablet.dr 20 MG PO BID Prescribed by: RADHA MERLOS DO Zonisamide (Zonisamide) 25 Mg Capsule 25 MG PO BID (Reported) Additional med instructions We are sending you out with some medications to keep her heart healthy after your heart attack. These include lisinopril, metoprolol, and atorvastatin. Please continue to take these as prescribed. He can resume your regularly prescribed home medications, though do not take aspirin as this may increase her risk of bleeding. Followup Plan Disposition: assisted facility Follow-up plan Follow-up with PCP in 1-2 weeks Discharge Diet: Heart Healthy, Diabetic Discharge Activity: Other (Your activity level will be guided by your caretakers at the care home facility. Continue to work with their physical therapy program) Patient Instructions You will be heading to a care home facility to get stronger in anticipation of returning to your home. Follow up with your primary care physician in one to 2 weeks. The GI doctors would like to take another look at your ulcers to make sure they're healing in 2 months. Continue to take your medications as prescribed. He has been through a lot, work with the physical therapy program at the nursing facility to get stronger. Follow-up Provider: FLORECITA HENDRICKS Follow-up with PCP in: 1 week Provider: Moi Loo MD Time spent Greater than 35 minutes Attending Statement The patient was seen and examined together with Dr. Merlos on 05/09/17 and I have added additional information to the note above. copies to: FLORECITA HENDRICKS; Moi Loo MD, Aaron C DO May 09, 2017 10:13 Deborah Ca DO May 09, 2017 13:55 your heart attack. These include lisinopril, metoprolol, and atorvastatin. Please continue to take these as prescribed. He can resume your regularly prescribed home medications, though do not take aspirin as this may increase her risk of bleeding. Followup Plan Discharge Diet: Heart Healthy, Diabetic Discharge Activity: Other (Your activity level will be guided by your caretakers at the care home facility. Continue to work with their physical therapy program) Patient Instructions You will be heading to a care home facility to get stronger in anticipation of returning to your home. Follow up with your primary care physician in one to 2 weeks. The GI doctors would like to take another look at your ulcers to make sure they're healing in 2 months. Continue to take your medications as prescribed. He has been through a lot, work with the physical therapy program at the nursing facility to get stronger. Follow-up with PCP in: 1 week Provider: Moi Loo MD, Aaron C DO May 09, 2017 10:13
--- NOTE | 2017-05-09 10:47 | NUR ---
ALF TRANSFER : Called and spoke with Fabiana Austin [phone] clinical admissions manager at [facility] and they can accept patient today with Afshan Lexie to follow. to number [phone], spoke with angela DOSS and this will be done prior to patient discharging. Updated DATA COMMUNICATIONS SOFTWARE CONSULTANT and on plan Addendum: 05/09/17 at 1256 by HAI MICHAEL CM Faxed orders to [facility], and placed copy in the chart. Spoke with Fabiana Austin at [facility] and they will transport patient via wheelchair van at 1400 Updated DATA COMMUNICATIONS SOFTWARE CONSULTANT
--- NOTE | 2017-05-09 11:31 | NUR ---
Social Work: Discharge/Multidisciplinary Rounds D: Pt discussed in multidisciplinary rounds; the patient is medically stable for discharge to skilled rehab for RN and PT care. The patient has been accepted at [facility] with Afshan SUMNER to follow. MAINTENANCE HELPER UTILITY ENGINEER spoke with the patient and her at bedside. They both agree with the plan to d/c to [facility] and are pleased that the patient has been accepted. They both state that the patient can tolerate w/c transfer. Learning Disabled Teacher is faxing discharge ppw, medications and instructions to [facility]. PASSR complete and faxed. PPW on chart. Transport time has not been arranged. MAINTENANCE HELPER UTILITY ENGINEER will update bedside RN once confirmed. A: Pt who will require skilled rehab at time of discharge for ongoing PT and strengthening. P: Pt to discharge to [facility] with Afshan Owen to follow; Transportation time not yet confirmed. SRINATH Tolliver Addendum: 05/09/17 at 1219 by JANNETTE VICTOR SRNIATH spoke with resident provider who states that the patient needs a re-consult from cardiology for a possible LEXIscan. Hold discharge until this is occurs.
[2017-05-09 11:55] VITALS: BP 133/71; PULSE 51; RESP 22; O2SAT 94
--- NOTE | 2017-05-09 14:27 | NUR ---
Transfer to SNF Orders received to discharge and transport patient to [facility]. Patient prepped for transport. IVs dcd, brief changed. Spouse brought in clean clothes and a night shirt for transport. Dirty clothes taken home with spouse. Transportation here at 1400 to transport. Patient transported via WC. Report phoned to Osmany at [facility].
== END 2017-05-09 14:20 | DRG 280 ==
LOC: SED 05:41 → CCU 07:58 → PCC 05-07 17:23
PROVIDERS: ADMIT Internal Medicine Cardiovascular Disease; ATTEND Neuromusculoskeletal Medicine & OMM
PROC: 0DB58ZX Excision of Esophagus, Via Natural or Artificial Opening Endoscopic, Diagnostic (ICD-10-PCS; 2017-05-04)
PROC: 30253N1 (ICD-10-PCS; principal; 2017-05-04 13:30)
PROC: 4A033R1 Measurement of Arterial Saturation, Peripheral, Percutaneous Approach (ICD-10-PCS; 2017-05-05)
PROC: 7W0 Osteopathic, Anatomical Regions, Treatment (ICD-10-PCS; 2017-05-08)
DX: I21.19 ST elevation (STEMI) myocardial infarction involving other coronary artery of inferior wall (principal); K26.0 Acute duodenal ulcer with hemorrhage; J96.01 Acute respiratory failure with hypoxia; D62 Acute posthemorrhagic anemia; N17.9 Acute kidney failure, unspecified; E87.2 Acidosis; I48.91 Unspecified atrial fibrillation; E66.9 Obesity, unspecified; F03.90 Unspecified dementia, unspecified severity, without behavioral disturbance, psychotic disturbance, mood disturbance, and anxiety; E78.5 Hyperlipidemia, unspecified; I10 Essential (primary) hypertension; I25.10 Atherosclerotic heart disease of native coronary artery without angina pectoris; Z66 Do not resuscitate; E11.9 Type 2 diabetes mellitus without complications; I34.0 Nonrheumatic mitral (valve) insufficiency; E03.9 Hypothyroidism, unspecified; R19.7 Diarrhea, unspecified; Z79.01 Long term (current) use of anticoagulants; Z79.51 Long term (current) use of inhaled steroids; Z86.73 Personal history of transient ischemic attack (TIA), and cerebral infarction without residual deficits; Z68.35 Body mass index [BMI] 35.0-35.9, adult